=== PATIENT | female | born 2005 | race Caucasian/White ===

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

== ENCOUNTER 2024-06-14 11:05 | Outpatient (AMB) | payer OTHER, SELFPAY ==
--- NOTE | 2024-06-14 11:13 | A.OFFPC_ITS ---
Vital Signs 06/14/24 11:17 Height 5 ft 2 in Weight 148 lb 6 oz BMI 27.1 BP 118/70 Blood Pressure Location Lt brachial Position Sitting Respiration 13 Pulse 76 Pulse Source Pulse Oximeter Pulse Oximetry (%) 99 Oxygen Delivery Method Room Air Intake Visit Reasons: KENNEL WORKER-EST CARE Intake Note: new patient to establish care and needs refill on meds Clinical Office Technician Required: No Allergies No Known Allergies Allergy (Verified 06/14/24 11:38) Medication List - Last Reconciled 06/14/24 by NIKI Chang- sertraline 50 mg PO DAILY Tobacco use date assessed: 06/14/24 Dental Screening Dental Screen Date: 06/14/24 Did you have a dental visit in the last 12 months?: Yes Did you have a dental problem in the last 6 months where you did not have access to dental care?: No Was dental information given to patient?: Patient has dentist HPI HPI Comments History of Present Illness Details 18 y/o F with MAMTA, MDD, ADHD, Vit D def, deviated nasal septum Social: 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 MAMTA, is on sertraline 50mg, started this in February, no dose changes. Taking QD. Does not feel like its working. Academic and social anxiety. Was in counseling in the past. Does have access to counseling at school. Has never been on any other medications. Hard time focusing. Hard time sitting still. Wonders if she has ADHD. Has never discuss this with her emergency medical technician or her parents. Denies SI/HI, negative coping skills. Overall she reports daytime somnolence and fatigue. She has witnessed apnea and snoring. She has never had a sleep study but wonders if she does have sleep apnea. She reports regular menstrual cycles and no chance of . She is not on control Finally she does report that she has a known deviated nasal septum and when she has sinus congestion she has not even harder time breathing. She has never been seen by ENT Plan: Labs today to rule out causes that could be contributing or worsening her anxiety. If labs are normal we will start Wellbutrin XL 150 mg 1 tablet once per day in the morning and refill her sertraline at the current dose. Recommend that she follow up with her school to see about counseling. If she is not able to establish care there and he has a referral I have asked that she send me a message via the portal so that I can refer her to counseling. Denies hx of Sz. Scored + on ADHD self assessment, So I do think that this medication will help her attention and focus. Made aware that this may worsen her anxiety and she should let me know if this is the case. Start Flonase to help with her deviated septum. If needed in the future could refer to ENT but we will hold off at this time. Home sleep study ordered to evaluate for complaints above. I would like to see her back in the office in about 6 weeks. She reports that she has finals therefore I told her I would like to see her when it works for her schedule, sooner as needed. Labs show no cause, therefore refill sertraline sent along w/ new rx for wellbutrin Vit D3 1000 IU sent in as well. Pt made aware via portal at 1705. This note is constructed using voice recognition software. While every effort has been made to ensure accuracy in refueler, still errors may have been included Sometimes, these errors may affect the content or meaning of the given sentence . Total time spent caring for the patient today was 45 minutes. This includes time spent before the visit reviewing the chart, time spent during the visit, and time spent after the visit on documentation [facility] Medical History (Updated 06/14/24 @ 17:02 by Linda Dhaliwal [facility]) Anxiety Surgical History (Updated 06/14/24 @ 11:26 by Genoveva Goel MA) No pertinent past surgical history Family History (Updated 06/14/24 @ 11:27 by Genoveva Goel MA) Sister Substance abuse Father Asthma Mother Hypertension Maternal Grandfather Hypertension Social History (Updated 06/14/24 @ 11:22 by Genoveva Goel MA) Household Members: None Housing: Apartment Housing Other:: dorm room Are you a primary team primary care physician to a significant other at home: No Do you presently have visiting nurse or other home services: No Alcohol intake: never Patient Tobacco Use Status: Never used Tobacco e-Cigarette/Vaping Use: Never Used service: No Current occupational status: student Cognitive needs: Yes Hearing needs: No Vision needs: No Questionnaire PHQ-9 Over the last 2 weeks, how often have you been bothered by any of the following problems? 1. Little interest or pleasure in doing things: more than half the days 2. Feeling down, depressed, or hopeless: more than half the days 3. Trouble falling or staying asleep, or sleeping too much: several days 4. Feeling tired or having little energy: more than half the days 5. Poor appetite or overeating: several days 6. Feeling bad about yourself - or that you are a failure or have let yourself or your family down: several days 7. Trouble concentrating on things, such as reading the newspaper or watching television: several days 8. Moving or speaking so slowly that other people could have noticed. Or the opposite - being so fidgety or restless that you have been moving around a lot more than usual: not at all 9. Thoughts that you would be better off or of hurting yourself in some way: not at all Total score: 10 Depression Screening Interpretation: Positive Depression Screening Follow-up: Existing condition and Follow-up Visit Requested Depression Screening Done: Yes 01624 - PHQ-9 Billing: Yes Source: Developed by Drs. Silvano Oneal, Hilda Cardona, David Thrasher and colleagues, with an educational josh from [employer]. Thrive Questionnaire Date Thrive assessed: 06/14/24 I am a: Patient What is your living situation today?: I have a steady place to live Within the past 12 months, did the food you bought not last and you didn't have the money to get more?: Never true Within the past 12 months, did you worry whether your food would run out before you got money to buy more?: Never true Do you have trouble paying for medicines?: No Do you have trouble getting transportation to medical appointments?: No Do you have trouble paying your heating and electricity bill?: No Do you have trouble taking care of your child, family member or friend?: No Do you have trouble with day-to-day activities such as bathing, preparing meals, shopping, managing finances, etc.?: No Are you currently unemployed and looking for a job?: No Are you interested in more education?: No Please select the resources that you would like help with: None Currently or been in a relationship where the following occur: No concerns reported THRIVE Score: 0 AUDIT C Alcohol Use Questionnaire (AUDIT-C) 1. How often do you have a drink containing alcohol?: Never 3. How often do you have six or more drinks on one occasion?: Never Total Score: 0 Score Reviewed/Action Taken: Yes MAMTA-7 AMB Questionnaire MAMTA-7 Date MAMTA - 7 assessed: 06/14/24 Feeling nervous, anxious, or on edge: 3 = Nearly every day Not being able to stop or control worryin = Nearly every day Worrying too much about different things: 3 = Nearly every day Trouble relaxin = More than half the days Being so restless that it is hard to sit still: 2 = More than half the days Becoming easily annoyed or irritable: 2 = More than half the days Feeling afraid as if something awful might happen: 1 = Several days Total MAMTA-7 score (0-4 normal; 5-9 mild; 10-14 moderate; 15-21 severe): 16 Source: Developed by Drs. Silvano Oneal, Hilda Cardona, David Thrasher and colleagues, with an educational josh from [employer]. MAMTA-7 Assessment Billing MAMTA-7 Assessment Tool: MAMTA-7 Assessment 82877 Physical exam (Primary Care) Vital Signs: Last Vital Signs Pulse 76 06/14/24 11:17 Resp 13 06/14/24 11:17 BP 118/70 06/14/24 11:17 Pulse Ox 99 06/14/24 11:17 Oxygen Delivery Method Room Air 06/14/24 11:17 BMI result Body Mass Index 27.1 Tobacco/Smoking Status: Tobacco use Status Tobacco use date assessed 06/14/24 06/14/24 11:23 Patient Tobacco Use Status Never used Tobacco 06/14/24 11:23 e-Cigarette/Vaping Use Never Used 06/14/24 11:23 PHQ-9: PHQ-9 Score PHQ-9: Total score 10 06/14/24 12:23 Depression Screening Interpretation: Positive Depression Screening Follow-up: Existing condition and Follow-up Visit Requested Thrive Assessment: Date of Thrive Assessment Date Thrive assessed 06/14/24 06/14/24 11:15 Currently or been in a relationship where the following occur: No concerns reported Results Reviewed Results Reviewed: RUN: 06/14/24 1701 PAGE 1 [facility] [address] [place] [phone] Customer Retention Specialist: Steve Momin M.D. Specimen Inquiry Name: Flavia Cook I Age/Sex: 18/F : 2005 Unit#: [id number] Attend Dr: Linda Dhaliwal Re06/14/24 Status: REG REF Location: [facility] Disch: SPEC : [id number] LUZ: 06/14/24-1237 STATUS: COMP REQ : [id number] RECD: 06/14/24-[address] COMP: 06/14/24-1634 ENTERED: 06/14/24-[address]: ORDERED: CMP, Lipid Panel, Vitamin D 25-OH, TSH Rflx Test Result Flag Reference Sodium 138 135-145 mmol/L Potassium 3.9 3.3-5.1 mmol/L CL 108 96-108 mmol/L CO2 23 22-29 mmol/L Gap 11 L 12-20 BUN 16 9-16 mg/dL Creat 0.73 0.5-1.4 mg/dL EGFR > 60 NOTE: For -Emirati individuals, multiply the result by 1.210. Chronic Kidney Disease: Estimated GFR < 60 mL/min/1.73m2 Severe Kidney Disease: Estimated GFR < 15 mL/min/1.73m2 Glucose, Random 71 60-115 mg/dL CA 9.5 8.4-10.2 mg/dL Total Bili 0.5 0.0-1.0 mg/dL AST (GOT) 38 H 5-31 U/L ALT (GPT) 16 0-31 U/L Protein, Total 7.3 6.5-8.0 g/dL Alb 4.2 3.5-5.0 g/dL Triglyceride 120 <150 mg/dL Desirable Triglyceride: less than 90 mg/dL Borderline High Triglyceride: 90-129 mg/dL High Triglyceride: greater than 130 mg/dL Cholesterol 172 <200 mg/dL Desirable Cholesterol: less than 170 mg/dL Borderline High Cholesterol: 170-199 mg/dL High Cholesterol: greater than 200 mg/dL LDL Calculated 89 <100 mg/dL Desirable LDL: less than 110 mg/dL Borderline LDL: 110-129 mg/dL High LDL: greater than or equal to 130 mg/dL HDL 59 >40 mg/dL Desirable HDL: greater than 45 mg/dL Borderline HDL: 40-45 mg/dL Low HDL: less than 40 mg/dL Note: This HDL assay may give artificially low results in patients with liver disease. Alk Phos 51 39-117 U/L Vit D 25-OH Tot 26.8 L >30 ng/mL Health Based Reference Values* < 20 ng/mL Deficient 20-30 ng/mL Insufficient > 30 ng/mL Sufficient *Dale LORA. N Engl J Med. 2007;357:266-280 Care must be taken in interpreting Vitamin D results from different laboratories and methodologies. Published data demonstrated that results from patients undergoing hemodialysis may show a negative bias when tested with various automated 25-OH vitamin D assays when compared to LC-MS/MS. When testing samples from patients whose predominant form of Vitamin D is Vitamin D2, such as patients receiving Vitamin D2 supplementation, results that are subtherapeutic should be confirmed with another method such as LC-MS/MS. TSH 0.90 0.32-4.0 uIU/mL END OF REPORT Coding Level of Care Code New Pt Level 4 (65027) Complex EM visit Add On G2211 Diagnoses MAMTA (generalized anxiety disorder) F41.1 Mild episode of recurrent major depressive disorder F33.0 Major depression episode severity: mild ADHD (attention deficit hyperactivity disorder) evaluation Z13.39 Daytime somnolence R40.0 ADHD (attention deficit hyperactivity disorder), inattentive type F90.0 Deviated nasal septum J34.2 Vitamin D deficiency E55.9 Additional Codes MAMTA-7 Assessment Billing - MAMTA-7 Assessment Tool: MAMTA-7 Assessment 00198 ([id number]) Assessment & Plan Assessment & Plan (1) MAMTA (generalized anxiety disorder): Code(s): F41.1 - Generalized anxiety disorder Category: Medical Plan: . (2) MDD (major depressive disorder), recurrent episode: Code(s): F33.9 - Major depressive disorder, recurrent, unspecified Category: Medical Qualifiers: Major depression episode severity: mild Qualified Code(s): F33.0 - Major depressive disorder, recurrent, mild Plan: . (3) ADHD (attention deficit hyperactivity disorder) evaluation: Code(s): Z13.39 - Encounter for screening examination for other mental health and behavioral disorders Category: Medical Plan: . (4) Daytime somnolence: Code(s): R40.0 - Somnolence Category: Medical Plan: . (5) ADHD (attention deficit hyperactivity disorder), inattentive type: Code(s): F90.0 - Attention-deficit hyperactivity disorder, predominantly inattentive type Category: Medical Plan: . (6) Deviated nasal septum: Code(s): J34.2 - Deviated nasal septum Category: Medical Plan: . (7) Vitamin D deficiency: Code(s): E55.9 - Vitamin D deficiency, unspecified Category: Medical Plan: . Plan . Orders: Orders Complete Blood Count no Diff Today F41.1 - Generalized anxiety disorder Comprehensive Met. Panel Today F41.1 - Generalized anxiety disorder Hemoglobin A1c Today F41.1 - Generalized anxiety disorder Microalbumin, Random (w Creat) Today F41.1 - Generalized anxiety disorder Vitamin B12 and Folate Today F41.1 - Generalized anxiety disorder RT home sleep study Today J34.2 - Deviated nasal septum, R40.0 - Somnolence Lipid Panel Today F41.1 - Generalized anxiety disorder TSH reflex Free T4 Today F41.1 - Generalized anxiety disorder Vitamin D 25-OH Total Today F41.1 - Generalized anxiety disorder Medications: New sertraline 50 mg PO DAILY 90 tabs 0RF bupropion HCl XL (Wellbutrin XL) 150 mg PO QAM 90 tabs 0RF cholecalciferol (vitamin D3) 25 mcg PO DAILY 90 caps 2RF fluticasone propionate 50 mcg/actuation administer into each nostril 1 spray intranasal BID 16 grams 0RF Patient Instructions: Walk-In Care (Urgent Care): We Make it Easy Walk-in for urgent medical issues such as: ? Seasonal Allergies ? Insect Bites ? Cough ? Diarrhea ? Acute Asthma Attacks ? Back, Knee or Joint Pain ? Ear Infection ? Fever without a Rash ? Headaches ? Nausea ? Sylva Eye, Rash or Skin Irritation ? Sore Throat ? Sports Physicals ? Vomiting Most insurances are accepted. Patients do not need to be part of the [facility] to seek care at the walk-in clinic. Locations [address] [place] [address] ? [phone] [facility] Walk-In Care in [place] provides services to ages 18 and over. Open Friday-Friday: 8 a.m. to 5 p.m. and Friday: 9 a.m. to 3 p.m.* *Hours may vary due to staffing availability. To confirm Walk-In Care hours in [place], please call [phone]. [address] [place] [address] ? [phone] [facility] Walk-In Care in [place] provides services to ages 12 and over. Open Friday-Friday: 8 a.m. to 5 p.m. Hours may vary due to staffing availability. To confirm Walk-In Care hours in [place], please call [phone]. LABORATORY SERVICES: [facility] Lab ? Primary Location [address] [place] [address] Friday through Friday 6:00 AM ? 5:00 PM Friday 7:00 AM ? 11:00 AM* [phone] The [facility] Lab is centrally located near the front entrance of the [facility] for easy outpatient access. Convenient parking is provided for outpatients. *Hours may vary due to staffing availability. To confirm Laboratory hours for any location, please call [phone]. Offsite Location For your convenience, we offer offsite laboratory draw stations at the following locations: [address] [place] [address] ? [facility] [address], [address] Friday through Friday 7:30 AM ? 1:00 PM* [phone] *Hours may vary due to staffing availability. To confirm Laboratory hours for any location, please call [phone]. [place] ? [address] Friday through Friday 6:00 AM ? 3:30 PM* Friday 6:30 AM ? 3 PM* [phone] *Hours may vary due to staffing availability. To confirm Laboratory hours for any location, please call [phone]. [address] [facility] Friday through Friday 7:30 AM ? 4:00 PM* [phone] *Hours may vary due to staffing availability. To confirm Laboratory hours for any location, please call [phone]. [address] [facility] Friday through 9:00 AM ? 4:00 PM* *Hours may vary due to staffing availability. To confirm Laboratory hours for any location, please call [phone]. Appointments are not necessary. Walk-ins are welcome. Like all the departments throughout the [facility], our Lab undergoes frequent reviews to ensure the quality and accuracy of test results, and our staff takes special pride in its status as a nationally accredited facility. Patient Portal: ONE PATIENT. ONE RECORD. BETTER CARE. [facility] has a fully integrated, cutting- edge mobile electronic health information system that has revolutionized the way we care for our patients and manage our organization. This system improves communication and coordination enabling us to provide safe, higher-quality care, and an overall positive experience for staff and patients. Our first priority, as always, is to deliver the highest quality care possible. The system is running in the background supporting that priority. This portal is for all [facility] and [facility] services and practices. If you are experiencing any technical difficulties with enrolling or logging into the Patient Portal please complete the [facility] Patient Portal Technical Support Form. [facility] and [facility] now offers a new secure on-line interactive tool for patients to review their health information ? Patient Portal. This interactive web portal will enable patients and their families to take an active role in their care by providing easy, secure access to their health information via the internet. The Patient Portal provides patients with instant access to their health information, including laboratory results, medications, allergies, demographic information, visit history, and more. In addition to managing their own care, parents and health care proxies with authorized consent will appreciate the ability to access the records of those individuals for whom they provide care. Please note: if you wish to gain access (Proxy) to another patient?s portal, you will be required to come to the Medical Records Department in person at [facility]. Both the patient giving proxy access and the proxy will need to provide photo identification and complete the appropriate authorization. The Patient Portal also allows track their appointments online. The [facility] Patient Portal also saves patients time by allowing them to submit updates to their demographic and contact information prior to their visits. Portal email notifications will also alert patients to any new activity on their portal, such as test results and new appointments. In order to initially enroll in the [facility] Patient Portal, you will need to enter some required information including the following: ? your [facility] Medical Record number ? your personal home email address ? name ? date of Please note: In order to enroll in the [facility] Patient Portal, we need to have your email address on file in your electronic medical record. The email address needs to be specific for one person (yourself) in order for your Portal enrollment to be successful. You can update your email address in person with our Registration staff when you are registering for a hospital visit. Otherwise, you will need to come to the Health Information Management (Medical Records) Department at [facility]. We are open from Friday ? Friday from 7:30 a.m. ? 4:30 p.m. You will be required to present a photo id. Once you have successfully enrolled in the Patient Portal, you will receive a one-time user id and password for the Portal, sent to your email address. This will allow you to log into the Patient Portal within 99 hrs and reset your own logon id and password, and define personal security questions. Once your permanent login and password have been set, you can log into the [facility] Patient Portal at any time via the blue button above or from the Portal Logon button on any page of the [facility] website. [facility] and [facility] encourage all of our patients to enroll in Patient Portal as it presents a valuable opportunity for patients and their families to actively participate in their care and stay healthy Welcome to [facility]. We look forward to working with you.
[2024-06-14 11:17] VITALS: BP 118/70; PULSE 76; RESP 13; O2SAT 99; BMI 27.1
== END 2024-06-14 11:59 | disposition home or self-care (01) ==
LOC: HO.HMCFM 11:06
PROVIDERS: PCP Pediatrics; Visit Provider Nurse Practitioner Family
DX: R40.0 Somnolence (principal); F41.1 Generalized anxiety disorder; F33.0 Major depressive disorder, recurrent, mild; Z13.39 Encounter for screening examination for other mental health and behavioral disorders; F90.0 Attention-deficit hyperactivity disorder, predominantly inattentive type; J34.2 Deviated nasal septum; E55.9 Vitamin D deficiency, unspecified

== ENCOUNTER → 2024-06-14 11:05 | Outpatient (BNVA) | payer OTHER, SELFPAY | PROVIDERS: PCP Pediatrics; Visit Provider Nurse Practitioner Family | DX: F41.1 Generalized anxiety disorder (principal); F33.0 Major depressive disorder, recurrent, mild; R40.0 Somnolence; F90.0 Attention-deficit hyperactivity disorder, predominantly inattentive type; J34.2 Deviated nasal septum; E55.9 Vitamin D deficiency, unspecified | CPT/HCPCS: 96127; 99202 ==

== ENCOUNTER 2024-06-14 12:25 | Outpatient (REF) | payer OTHER, SELFPAY ==
[2024-06-14 14:52] LABS: Hematocrit 40.4 % (37.0-47.0); Hemoglobin 13.6 g/dl (12.0-16.0); Mean Corpuscular HGB Conc 33.7 g/dl (31.0-35.0); Mean Platelet Volume 11.8 fL (9.4-12.3); Platelet Count 223 X10*3/uL (160-400); Red Blood Count 4.54 X10*6/uL (4.20-5.50); Red Cell Distribution Width 12.1 % (11.0-16.0); White Blood Count 7.6 X10*3/uL (4.8-10.8)
[2024-06-14 15:05] LABS: Estimated Average Glucose 88 mg/dL; Hemoglobin A1C 99.8135 umol/L; Hemoglobin A1c % 4.7 % (<6.0); Total Hemoglobin (HGBA1C) 3567.1836 umol/L
[2024-06-14 15:44] LABS: Creatinine Urine 112.91 mg/dL; Microalbumin Urine < 5.0 mg/L
[2024-06-14 16:15] LABS: Alanine Aminotransferase 16 U/L (0-31); Albumin Level 4.2 g/dL (3.5-5.0); Anion Gap 11 (12-20); Aspartate Amino Transferase 38 U/L (5-31); Bilirubin Total 0.5 mg/dL (0.0-1.0); Blood Urea Nitrogen 16 mg/dL (9-16); Calcium 9.5 mg/dL (8.4-10.2); Carbon Dioxide 23 mmol/L (22-29); Chloride 108 mmol/L (96-108); Estimated Glomerular Filt Rate > 60; Glucose Random 71 mg/dL (60-115); Potassium 3.9 mmol/L (3.3-5.1); Sodium 138 mmol/L (135-145); Total Protein 7.3 g/dL (6.5-8.0); Triglycerides 120 mg/dL (<150)
[2024-06-14 16:16] LABS: Alkaline Phosphatase 51 U/L (39-117); Cholesterol 172 mg/dL (<200); HDL Cholesterol 59 mg/dL (>40); LDL Cholesterol Calculated 89 mg/dL (<100)
[2024-06-14 16:34] LABS: Vitamin D 25-OH Total 26.8 ng/mL (>30)
[2024-06-14 17:06] LABS: Folate 10.1 ng/mL (> or = 4.0); Vitamin B12 611 pg/mL (200-900)
== END 2024-06-14 12:26 | disposition home or self-care (01) ==
LOC: HO.WFDLDS 12:25
PROVIDERS: Visit Provider Nurse Practitioner Family
DX: F41.1 Generalized anxiety disorder (principal)
CPT/HCPCS: 36415; 80053; 80061; 82043; 82306; 82570; 82607; 82746; 83036; 84443; 85027

== ENCOUNTER 2024-08-13 08:38 | Outpatient (AMB) | payer OTHER, SELFPAY ==
--- NOTE | 2024-08-13 08:45 | MHC.PC.OV ---
Vital Signs 08/13/24 08:50 Height 5 ft 2 in Weight 145 lb 6 oz BMI 26.6 BP 124/76 Blood Pressure Location Rt brachial Position Sitting Respiration 13 Pulse 77 Pulse Source Pulse Oximeter Pulse Oximetry (%) 98 Oxygen Delivery Method Room Air Intake Visit Reasons: 6 week fu on MAMTA, labs 30 min Intake Note: Follow up on MAMTA and labs Title Insurance Sales Representative Required: No Allergies No Known Allergies Allergy (Verified 08/13/24 09:24) Medication List - Last Reconciled 08/13/24 by ABDIRAHMAN ChangP- bupropion HCl XL (Wellbutrin XL) 150 mg PO QAM cholecalciferol (vitamin D3) 25 mcg PO DAILY fluticasone propionate 50 mcg/actuation 1 spray intranasal BID sertraline 50 mg PO DAILY Tobacco use date assessed: 06/14/24 Dental Screening Dental Screen Date: 06/14/24 HPI HPI Comments History of Present Illness Details 19 y/o F with MAMTA, MDD, ADHD, Vit D def, deviated nasal septum, trichotillomania Social: In School for [employer], 2026 graduation date, [place] Surgery: None Health Maintenance Tdap Specialists: Counselor ENT Here today for routine fu after starting Wellbutrin to help w/ MAMTA and ADHD The patient reports no change in symptoms since starting bupropion, neither improvement in anxiety nor enhanced focus. She has previously been on sertraline for anxiety and trichotillomania but expressed interest in exploring additional treatment options, such as n-acetylcysteine for trichotillomania, after researching its potential benefits. The deviated nasal septum has been causing obstruction, leading to difficulty breathing through the left nostril and persistent snoring, which affects her sleep quality and causes disturbances for her roommate. A sleep study is scheduled to further examine the snoring issue. The patient has been using Flonase primarily in the mornings to relieve allergen-related symptoms, which has helped with nasal congestion. Previous vitamin D deficiency was identified, and the patient is currently addressing it with multivitamins that contain vitamin D. Social History - Family: Reports recent passing of grandfather and unable to attend the due to academic commitments. - Education: In college, discussed the need for educational accommodations due to focus issues and stress. Exam Awake alert NAD nasal deviation RRR LS CTAB Mood and affect appropriate Plan - Increase bupropion to 300 mg daily to potentially enhance symptom management for generalized anxiety disorder and ADHD. - Continue sertraline 50 mg daily for anxiety management. - Continue Flonase for allergic rhinitis management. - Patient to consider starting n-acetylcysteine for trichotillomania, following research into its benefits. - Referral to ENT for further evaluation and management of deviated nasal septum. - Conduct sleep study as scheduled on August 16 to assess snoring and breathing-related sleep disturbance. - Proceed with counseling referral for mental health support. - Provide letter of accommodation for academic adjustments related to focus and exam time. Patient was informed and verbally consented to the use of an ambient scribe for clinic note documentation during this visit. Discussion Notes During the consultation, I discussed with the patient the adjustment of her bupropion dosage to potentially improve her anxiety and focus. We considered adding n-acetylcysteine as a supplementary treatment for trichotillomania, emphasizing it does not interact with her current medications. I informed the patient about the ENT referral process and the potential wait time for an appointment due to limited availability in the area. I reiterated the plan for the upcoming sleep study to obtain further insights into her snoring issues. We revisited the importance of continuing vitamin supplementation and the use of Flonase in managing her symptoms. I emphasized the significance of mental health support and academic accommodations, particularly in light of her recent personal loss and stressors. I offered the option of a follow-up video visit to facilitate her schedule while ensuring ongoing monitoring of her treatment responses. Patient Instructions - Take bupropion 300 mg daily. - Continue sertraline 50 mg daily. - Continue using Flonase as needed for nasal congestion. - Consider starting n-acetylcysteine for trichotillomania after discussing with your family. - Keep the appointment for the sleep study on August 16. - Follow up with ENT when an appointment is confirmed. - Attend counseling sessions as arranged. - Inform the academic office about accommodation letters upon returning to school. - Book a follow-up visit in four weeks, either in-person or via video call as convenient. Total time spent caring for the patient today was 30 minutes. This includes time spent before the visit reviewing the chart, time spent during the visit, and time spent after the visit on documentation [facility] Medical History (Updated 08/13/24 @ 16:10 [facility] Anxiety Surgical History (Updated 06/14/24 @ 11:26 by Genoveva Goel MA) No pertinent past surgical history Family History (Updated 06/14/24 @ 11:27 by Genoveva Goel MA) Sister Substance abuse Father Asthma Mother Hypertension Maternal Grandfather Hypertension Social History (Updated 06/14/24 @ 11:22 by Genoveva Goel MA) Household Members: None Housing: Apartment Housing Other:: dorm room Are you a primary careers counsellor to a significant other at home: No Do you presently have visiting nurse or other home services: No 75 years or older and lives alone: No Alcohol intake: never Patient Tobacco Use Status: Never used Tobacco e-Cigarette/Vaping Use: Never Used service: No Current occupational status: student Cognitive needs: Yes Hearing needs: No Vision needs: No Questionnaire PHQ-9 Over the last 2 weeks, how often have you been bothered by any of the following problems? 1. Little interest or pleasure in doing things: several days 2. Feeling down, depressed, or hopeless: several days 3. Trouble falling or staying asleep, or sleeping too much: several days 4. Feeling tired or having little energy: nearly every day 5. Poor appetite or overeating: several days 6. Feeling bad about yourself - or that you are a failure or have let yourself or your family down: several days 7. Trouble concentrating on things, such as reading the newspaper or watching television: nearly every day 8. Moving or speaking so slowly that other people could have noticed. Or the opposite - being so fidgety or restless that you have been moving around a lot more than usual: several days 9. Thoughts that you would be better off or of hurting yourself in some way: several days Total score: 13 Depression Screening Interpretation: Positive Depression Screening Follow-up: Existing condition and In treatment Depression Screening Done: Yes 84056 - PHQ-9 Billing: Yes Source: Developed by Drs. Silvano Oneal, Hilda Cardona, David Thrasher and colleagues, with an educational josh from [employer]. Thrive Questionnaire Date Thrive assessed: 08/13/24 I am a: Patient What is your living situation today?: I have a steady place to live Within the past 12 months, did the food you bought not last and you didn't have the money to get more?: Never true Within the past 12 months, did you worry whether your food would run out before you got money to buy more?: Never true Do you have trouble paying for medicines?: No Do you have trouble getting transportation to medical appointments?: No Do you have trouble paying your heating and electricity bill?: No Do you have trouble taking care of your child, family member or friend?: No Do you have trouble with day-to-day activities such as bathing, preparing meals, shopping, managing finances, etc.?: No Are you currently unemployed and looking for a job?: No Are you interested in more education?: Yes Please select the resources that you would like help with: None Currently or been in a relationship where the following occur: No concerns reported THRIVE Score: 0 AUDIT C Alcohol Use Questionnaire (AUDIT-C) 1. How often do you have a drink containing alcohol?: Never 3. How often do you have six or more drinks on one occasion?: Never Total Score: 0 Score Reviewed/Action Taken: Yes MAMTA-7 AMB Questionnaire MAMTA-7 Date MAMTA - 7 assessed: 08/13/24 Feeling nervous, anxious, or on edge: 3 = Nearly every day Not being able to stop or control worryin = Nearly every day Worrying too much about different things: 3 = Nearly every day Trouble relaxin = More than half the days Being so restless that it is hard to sit still: 2 = More than half the days Becoming easily annoyed or irritable: 3 = Nearly every day Feeling afraid as if something awful might happen: 2 = More than half the days Total MAMTA-7 score (0-4 normal; 5-9 mild; 10-14 moderate; 15-21 severe): 18 Source: Developed by Drs. Silvano Oneal, Hilda Cardona, David Thrasher and colleagues, with an educational josh from [employer]. MAMTA-7 Assessment Billing MAMTA-7 Assessment Tool: MAMTA-7 Assessment 81201 Physical exam (Primary Care) Vital Signs: Last Vital Signs Pulse 77 08/13/24 08:50 Resp 13 08/13/24 08:50 BP 124/76 08/13/24 08:50 Pulse Ox 98 08/13/24 08:50 Oxygen Delivery Method Room Air 08/13/24 08:50 BMI result Body Mass Index 26.6 Tobacco/Smoking Status: Tobacco use Status Tobacco use date assessed 06/14/24 08/13/24 08:48 Patient Tobacco Use Status Never used Tobacco 08/13/24 08:48 e-Cigarette/Vaping Use Never Used 08/13/24 08:48 PHQ-9: PHQ-9 Score PHQ-9: Total score 13 08/13/24 09:24 Depression Screening Interpretation: Positive Depression Screening Follow-up: Existing condition and In treatment Thrive Assessment: Date of Thrive Assessment Date Thrive assessed 08/13/24 08/13/24 08:48 Currently or been in a relationship where the following occur: No concerns reported Coding Level of Care Code Est Pt Level 4 (19869) Complex EM visit Add On G2211 Diagnoses Mild episode of recurrent major depressive disorder F33.0 Major depression episode severity: mild MAMTA (generalized anxiety disorder) F41.1 Vitamin D deficiency E55.9 ADHD (attention deficit hyperactivity disorder), inattentive type F90.0 Deviated nasal septum J34.2 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 Additional Codes MAMTA-7 Assessment Billing - MAMTA-7 Assessment Tool: MAMTA-7 Assessment 75340 ([id number]) PHQ-9 - 12047 - PHQ-9 Billing: Yes ([id number]) Assessment & Plan Assessment & Plan (1) MDD (major depressive disorder), recurrent episode: Code(s): F33.9 - Major depressive disorder, recurrent, unspecified Category: Medical Qualifiers: Major depression episode severity: mild Qualified Code(s): F33.0 - Major depressive disorder, recurrent, mild (2) MAMTA (generalized anxiety disorder): Code(s): F41.1 - Generalized anxiety disorder Category: Medical (3) Vitamin D deficiency: Code(s): E55.9 - Vitamin D deficiency, unspecified Category: Medical (4) ADHD (attention deficit hyperactivity disorder), inattentive type: Code(s): F90.0 - Attention-deficit hyperactivity disorder, predominantly inattentive type Category: Medical (5) Deviated nasal septum: Comment: left Code(s): J34.2 - Deviated nasal septum Category: Medical (6) Trichotillomania: Code(s): F63.3 - Trichotillomania Category: Medical Plan . Orders: Referrals Nurse Navigator Referral F41.1 - Generalized anxiety disorder Ear/Nose/Throat Referral J34.2 - Deviated nasal septum
[2024-08-13 08:50] VITALS: BP 124/76; PULSE 77; RESP 13; O2SAT 98; BMI 26.6
== END 2024-08-13 09:42 | disposition home or self-care (01) ==
PROVIDERS: PCP Nurse Practitioner Family; Visit Provider Nurse Practitioner Family
DX: J34.2 Deviated nasal septum (principal); E55.9 Vitamin D deficiency, unspecified; F33.0 Major depressive disorder, recurrent, mild; F41.1 Generalized anxiety disorder; F90.0 Attention-deficit hyperactivity disorder, predominantly inattentive type; F63.3 Trichotillomania

== ENCOUNTER → 2024-08-13 08:38 | Outpatient (BNVA) | payer OTHER, SELFPAY | PROVIDERS: PCP Nurse Practitioner Family; Visit Provider Nurse Practitioner Family | DX: F33.0 Major depressive disorder, recurrent, mild (principal); F41.1 Generalized anxiety disorder; E55.9 Vitamin D deficiency, unspecified; F90.0 Attention-deficit hyperactivity disorder, predominantly inattentive type; J34.2 Deviated nasal septum; F63.3 Trichotillomania | CPT/HCPCS: 96127; 99212 ==

== ENCOUNTER → 2024-08-16 15:41 | Outpatient (REF) | payer OTHER, SELFPAY | LOC: HO.SL 15:41 | PROVIDERS: PCP Nurse Practitioner Family; Visit Provider Nurse Practitioner Family | DX: R40.0 Somnolence (principal); J34.2 Deviated nasal septum | CPT/HCPCS: 95806 ==

== ENCOUNTER → 2024-08-16 15:56 | Outpatient (BNV) | payer OTHER, SELFPAY | PROVIDERS: PCP Nurse Practitioner Family; Visit Provider Internal Medicine | DX: R06.83 Snoring (principal) | CPT/HCPCS: 95806 ==

== ENCOUNTER 2024-09-10 12:14 | Outpatient (AMB) | payer OTHER, SELFPAY ==
--- NOTE | 2024-09-10 13:00 | MHC.PC.OV ---
Intake Visit Reasons: 4 weeks fu wellbutrin ^ in person or tele Allergies No Known Allergies Allergy (Verified 09/10/24 13:00) Medication List - Last Reconciled 09/10/24 by NIKI Chang- bupropion HCl XL (Wellbutrin XL) 300 mg PO QAM cholecalciferol (vitamin D3) 25 mcg PO DAILY fluticasone propionate 50 mcg/actuation 1 spray intranasal BID sertraline 50 mg PO DAILY Tobacco use date assessed: 09/10/24 Dental Screening Dental Screen Date: 09/10/24 Did you have a dental visit in the last 12 months?: Yes Did you have a dental problem in the last 6 months where you did not have access to dental care?: No Was dental information given to patient?: Patient has dentist HPI HPI Comments History of Present Illness Details 19 y/o F with MAMTA, MDD, ADHD, Vit D def, deviated nasal septum, trichotillomania Social: In School for [employer], 2026 graduation date, [place] Surgery: None Specialists: Counselor declined @ this time. ENT Telehealth appt today: MDD, MAMTA, ADHD f/u She has been prescribed Bupropion 300 mg for Major Depressive Disorder, MAMTA and ADHD but reports no significant change in symptoms after consistent use. Her current regimen includes Sertraline. Referred to counseling but does not think she needs this right now Additionally, she started N-acetylcysteine 600 mg for trichotillomania, noting some improvement in symptoms, particularly a reduction in the urge to pull hair. A sleep study performed on August 16 showed 17% snoring, likely related to her known deviated septum, but no apneic episodes or dangerous oxygen desaturation were noted. She has been advised to consult with an ENT specialist regarding her nasal issues and the associated snoring. Her current regimen includes Sertraline Social History - Currently attending college and resides in a dormitory setting. - Has reported recent improvement in stress-related conflict at school. - Performing well academically despite some ongoing stress. Results - Tests: - Sleep Study dated August 16: 17% snoring with no apneic events and minimal non-dangerous oxygen desaturation. Discussion Notes I reviewed the patient's current medication regimen and the results of her recent sleep study. We discussed increase of Bupropion from 300 mg to 450 mg. We agreed to maintain the current Sertraline dosage. The sleep study results indicated snoring likely related to the deviated nasal septum, warranting an ENT consultation. The patient has initiated N-acetylcysteine with positive results for trichotillomania, and she was encouraged to continue this medication. Counseling was discussed, but the patient currently declines as she feels stable. Needs more info on letter of accomodation for school - she will provide this to me via the portal. We planned a follow-up in approximately six to eight weeks to reassess the management plan. 10/04/24 at 3:45pm telehealth Plan - Increase Bupropion to a total of 450 mg daily by combining 300 mg and 150 mg tablets due to insufficient symptom control at 300 mg. - Maintain current Sertraline dosing as patient reports adequate supply and stability in symptoms. - ENT evaluation of deviated nasal septum to address snoring and potential impact on sleep quality. Info provided via portal - Continue N-acetylcysteine for management of trichotillomania, as the patient has reported improvement in symptoms. - Provide letter of accommodation for academic adjustments related to focus and exam time. - Schedule follow-up in six to eight weeks to evaluate efficacy of increased Bupropion dosage and reassess mood and anxiety scores. Consider further counseling if necessary. Patient was informed and verbally consented to the use of an ambient scribe for clinic note documentation during this visit. Total time spent caring for the patient today was 22 minutes. This includes time spent before the visit reviewing the chart, time spent during the visit, and time spent after the visit on documentation, reviewing laboratory results, diagnostic imaging, medications, performing a medically necessary evaluation, counseling on diagnoses, care coordination, ordering appropriate tests, ordering appropriate medications, review of tests performed by other providers, reporting test results with the patient, communication with other healthcare providers. [facility] Medical History (Updated 09/10/24 @ 13:24 [facility] Anxiety Surgical History (Updated 06/14/24 @ 11:26 by Genoveva Goel MA) No pertinent past surgical history Family History (Updated 06/14/24 @ 11:27 by Genoveva Goel MA) Sister Substance abuse Father Asthma Mother Hypertension Maternal Grandfather Hypertension Social History (Updated 06/14/24 @ 11:22 by Genoveva Goel MA) Household Members: None Housing: Apartment Housing Other:: dorm room Are you a primary urgent care nurse practitioner to a significant other at home: No Do you presently have visiting nurse or other home services: No 75 years or older and lives alone: No Alcohol intake: never Patient Tobacco Use Status: Never used Tobacco e-Cigarette/Vaping Use: Never Used service: No Current occupational status: student Cognitive needs: Yes Hearing needs: No Vision needs: No Questionnaire PHQ-9 Over the last 2 weeks, how often have you been bothered by any of the following problems? 1. Little interest or pleasure in doing things: several days 2. Feeling down, depressed, or hopeless: several days 3. Trouble falling or staying asleep, or sleeping too much: more than half the days 4. Feeling tired or having little energy: nearly every day 5. Poor appetite or overeating: not at all 6. Feeling bad about yourself - or that you are a failure or have let yourself or your family down: several days 7. Trouble concentrating on things, such as reading the newspaper or watching television: nearly every day 8. Moving or speaking so slowly that other people could have noticed. Or the opposite - being so fidgety or restless that you have been moving around a lot more than usual: not at all 9. Thoughts that you would be better off or of hurting yourself in some way: not at all Total score: 11 Depression Screening Interpretation: Positive Depression Screening Follow-up: Existing condition and In treatment Depression Screening Done: Yes 29100 - PHQ-9 Billing: Yes Source: Developed by Drs. Silvano Oneal, Hilda Cardona, David Thrasher and colleagues, with an educational josh from [employer]. Thrive Questionnaire Date Thrive assessed: 08/13/24 MAMTA-7 AMB Questionnaire MAMTA-7 Date MAMTA - 7 assessed: 09/10/24 Feeling nervous, anxious, or on edge: 3 = Nearly every day Not being able to stop or control worryin = More than half the days Worrying too much about different things: 1 = Several days Trouble relaxin = Several days Being so restless that it is hard to sit still: 1 = Several days Becoming easily annoyed or irritable: 3 = Nearly every day Feeling afraid as if something awful might happen: 0 = Not at all Total MAMTA-7 score (0-4 normal; 5-9 mild; 10-14 moderate; 15-21 severe): 11 Source: Developed by Drs. Silvano Oneal, Hilda Cardona, David Thrasher and colleagues, with an educational josh from [employer]. MAMTA-7 Assessment Billing MAMTA-7 Assessment Tool: MAMTA-7 Assessment 81925 Physical exam (Primary Care) Tobacco/Smoking Status: Tobacco use Status Tobacco use date assessed 06/14/24 08/13/24 08:48 Patient Tobacco Use Status Never used Tobacco 08/13/24 08:48 e-Cigarette/Vaping Use Never Used 08/13/24 08:48 Depression Screening Interpretation: Positive Depression Screening Follow-up: Existing condition and In treatment Thrive Assessment: Date of Thrive Assessment Date Thrive assessed 08/13/24 08/13/24 08:48 Telehealth Telehealth Telehealth Platform: [facility] Location of provider rendering services: practice address Location of patient: address on file Patient Identification confirmed using: Name, : Yes Telehealth method: voice only Patient verbally consented to treatment: Yes Patient verbally consented to billing insurance company: Yes Patient informed of any privacy concerns related to visit: Yes Minutes spent on Phone/Video with Pt.: 15 Coding Level of Care Code Tele Est Pt Level 3 (49773) Complex EM visit Add On G2211 Diagnoses ADHD (attention deficit hyperactivity disorder), inattentive type F90.0 Daytime somnolence R40.0 MAMTA (generalized anxiety disorder) F41.1 Mild episode of recurrent major depressive disorder F33.0 Major depression episode severity: mild 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 Deviated nasal septum J34.2 Additional Codes PHQ-9 - 86980 - PHQ-9 Billing: Yes ([id number]) MAMTA-7 Assessment Billing - MAMTA-7 Assessment Tool: MAMTA-7 Assessment 27412 ([id number]) Assessment & Plan Assessment & Plan (1) ADHD (attention deficit hyperactivity disorder), inattentive type: Code(s): F90.0 - Attention-deficit hyperactivity disorder, predominantly inattentive type Category: Medical (2) Daytime somnolence: Code(s): R40.0 - Somnolence Category: Medical (3) MAMTA (generalized anxiety disorder): Code(s): F41.1 - Generalized anxiety disorder Category: Medical (4) MDD (major depressive disorder), recurrent episode: Code(s): F33.9 - Major depressive disorder, recurrent, unspecified Category: Medical Qualifiers: Major depression episode severity: mild Qualified Code(s): F33.0 - Major depressive disorder, recurrent, mild (5) Trichotillomania: Code(s): F63.3 - Trichotillomania Category: Medical (6) Deviated nasal septum: Comment: left Code(s): J34.2 - Deviated nasal septum Category: Medical Plan . Medications: New bupropion HCl XL (Wellbutrin XL) total dose 450mg QD 150 mg PO QAM 90 tabs 1RF Refilled bupropion HCl XL (Wellbutrin XL) 300 mg PO QAM 90 tabs 1RF
== END 2024-09-10 17:05 | disposition home or self-care (01) ==
LOC: HO.HMCFM 12:14
PROVIDERS: PCP Nurse Practitioner Family; Visit Provider Nurse Practitioner Family
DX: F90.0 Attention-deficit hyperactivity disorder, predominantly inattentive type (principal); R40.0 Somnolence; F41.1 Generalized anxiety disorder; F33.0 Major depressive disorder, recurrent, mild; F63.3 Trichotillomania; J34.2 Deviated nasal septum

== ENCOUNTER → 2024-09-10 12:14 | Outpatient (BNVA) | payer OTHER, SELFPAY | PROVIDERS: PCP Nurse Practitioner Family; Visit Provider Nurse Practitioner Family | DX: F90.0 Attention-deficit hyperactivity disorder, predominantly inattentive type (principal); R40.0 Somnolence; F41.1 Generalized anxiety disorder; F33.0 Major depressive disorder, recurrent, mild; F63.3 Trichotillomania; J34.2 Deviated nasal septum | CPT/HCPCS: 96127 ==

== ENCOUNTER 2024-10-11 14:16 | Outpatient (AMB) | payer OTHER, SELFPAY ==
--- NOTE | 2024-10-11 16:01 | A.OFFPC_ITS ---
Intake Visit Reasons: fu wellbutrin increase Intake Note: telehalth follow up on med review Eeler Required: No Allergies No Known Allergies Allergy (Verified 10/11/24 16:57) Medication List - Last Reconciled 10/11/24 by NIKI Chang- bupropion HCl XL (Wellbutrin XL) 150 mg PO QAM bupropion HCl XL (Wellbutrin XL) 300 mg PO QAM cholecalciferol (vitamin D3) 25 mcg PO DAILY fluticasone propionate 50 mcg/actuation 1 spray intranasal BID sertraline 50 mg PO DAILY Tobacco use date assessed: 10/11/24 Dental Screening Dental Screen Date: 10/11/24 Did you have a dental visit in the last 12 months?: Yes Did you have a dental problem in the last 6 months where you did not have access to dental care?: No Was dental information given to patient?: Patient has dentist HPI HPI Comments History of Present Illness Details 19 y/o F with MAMTA, MDD, ADHD, Vit D def, deviated nasal septum, trichotillomania Social: In School for [employer], 2026 graduation date, [place] Surgery: None Specialists: Counselor declined @ this time. ENT History of Present Illness The patient is a 19-year-old female with challenges in managing her ADHD, alongside comorbid anxiety and depression. Her ADHD symptoms, particularly poor attention and focus, have significantly interfered with her academic performance, exacerbating her anxiety and depressive symptoms. Despite an increase in bupropion dosage, she has not experienced significant relief. She continues on sertraline & NAC with some control over trichotillomania, though adherence is inconsistent with NAC. Denies SI/HI. Does not think counseling is needed. The patient has yet to pursue ENT evaluation for her deviated nasal septum. he benefits from academic accommodations, which aid in managing her school- related stress. Assessment and Plan 1. Attention-Deficit/Hyperactivity Disor claude (ADHD): Initiate atomoxetine (Strattera) for managing ADHD symptoms, starting at 10 mg daily with a gradual increase to assess efficacy and tolerance. Optimization of ADHD treatment is expected to contribute to an overall improvement in mental health symptoms. Send me a message q2 weeks and provide me with sx rating scale 1 being poor attention and 10 being great attention. We will increase dose in 2 week intervals w a phone visit in 6 weeks, sooner PRN. 2. Anxiety and Depression: Continue bupr opion and sertraline with a focus on fut ure tapering considerations as control of ADHD symptoms improves. The patient is open to trialing additional therapy to alleviate residual anxiety and depression. 3. Hair-Pulling Disorder (Trichotilloman ia): Although improved with NAC - cont. 4. Deviated Nasal Septum: Advise followi ng through with an ENT consultation when feasible to address the deviated nasal septum, potentially improving related symptoms. Telehealth Attestation This telehealth encounter was conducted via phone. Documentation accuracy and patient information were verified during the visit. The patient has been explained that this is an interactive (audio/video) telehealth encounter and what that consists of. The patient understands and wishes to proceed. [employer] platform was used. Total time spent caring for the patient today was 18 minutes. This includes time spent before the visit reviewing the chart, time spent during the visit, and time spent after the visit on documentation, reviewing laboratory results, diagnostic imaging, medications, performing a medically necessary evaluation, counseling on diagnoses, care coordination, ordering appropriate tests, ordering appropriate medications, review of tests performed by other providers, reporting test results with the patient, communication with other healthcare providers. [facility] Medical History (Updated 09/10/24 @ 13:24 by Linda Dhaliwal [facility]) Anxiety Surgical History (Updated 06/14/24 @ 11:26 by Genoveva Goel MA) No pertinent past surgical history Family History (Updated 06/14/24 @ 11:27 by Genoveva Goel MA) Sister Substance abuse Father Asthma Mother Hypertension Maternal Grandfather Hypertension Social History (Updated 06/14/24 @ 11:22 by Genoveva Goel MA) Household Members: None Housing: Apartment Housing Other:: dorm room Are you a primary care transition mgr to a significant other at home: No Do you presently have visiting nurse or other home services: No 75 years or older and lives alone: No Alcohol intake: never Patient Tobacco Use Status: Never used Tobacco e-Cigarette/Vaping Use: Never Used service: No Current occupational status: student Cognitive needs: Yes Hearing needs: No Vision needs: No Questionnaire PHQ-9 Over the last 2 weeks, how often have you been bothered by any of the following problems? 74732 - PHQ-9 Billing: Patient declined-do not bill Source: Developed by Drs. Silvano Oneal, Hilda Cardona, David Thrasher and colleagues, with an educational josh from [employer]. Thrive Questionnaire Date Thrive assessed: 10/11/24 I am a: Patient What is your living situation today?: I have a steady place to live Within the past 12 months, did the food you bought not last and you didn't have the money to get more?: Never true Within the past 12 months, did you worry whether your food would run out before you got money to buy more?: Never true Do you have trouble paying for medicines?: No Do you have trouble getting transportation to medical appointments?: No Do you have trouble paying your heating and electricity bill?: No Do you have trouble taking care of your child, family member or friend?: No Do you have trouble with day-to-day activities such as bathing, preparing meals, shopping, managing finances, etc.?: No Are you currently unemployed and looking for a job?: No Are you interested in more education?: No THRIVE Score: 0 MAMTA-7 AMB Questionnaire MAMTA-7 Date MAMTA - 7 assessed: 09/10/24 Source: Developed by Drs. Silvano Oneal, Hilda Cardona, David Thrasher and colleagues, with an educational josh from [employer]. Physical exam (Primary Care) Tobacco/Smoking Status: Tobacco use Status Tobacco use date assessed 10/11/24 10/11/24 16:03 Patient Tobacco Use Status Never used Tobacco 10/11/24 16:03 e-Cigarette/Vaping Use Never Used 10/11/24 16:03 Thrive Assessment: Date of Thrive Assessment Date Thrive assessed 10/11/24 10/11/24 16:03 Telehealth Telehealth Telehealth Platform: [facility] Location of provider rendering services: practice address Location of patient: address on file Patient Identification confirmed using: Name, : Yes Telehealth method: voice only Patient verbally consented to treatment: Yes Patient verbally consented to billing insurance company: Yes Patient informed of any privacy concerns related to visit: Yes Minutes spent on Phone/Video with Pt.: 12 Coding Level of Care Code Tele Est Pt Level 3 (92686) Complex EM visit Add On G2211 Diagnoses ADHD (attention deficit hyperactivity disorder), inattentive type F90.0 Deviated nasal septum J34.2 MAMTA (generalized anxiety disorder) F41.1 Mild episode of recurrent major depressive disorder F33.0 Major depression episode severity: mild 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 Assessment & Plan Assessment & Plan (1) ADHD (attention deficit hyperactivity disorder), inattentive type: Code(s): F90.0 - Attention-deficit hyperactivity disorder, predominantly inattentive type Category: Medical (2) Deviated nasal septum: Comment: left Code(s): J34.2 - Deviated nasal septum Category: Medical (3) MAMTA (generalized anxiety disorder): Code(s): F41.1 - Generalized anxiety disorder Category: Medical (4) MDD (major depressive disorder), recurrent episode: Code(s): F33.9 - Major depressive disorder, recurrent, unspecified Category: Medical Qualifiers: Major depression episode severity: mild Qualified Code(s): F33.0 - Major depressive disorder, recurrent, mild (5) Trichotillomania: Code(s): F63.3 - Trichotillomania Category: Medical Plan . Medications: New atomoxetine (Strattera) 10 mg PO DAILY 90 caps 0RF Refilled sertraline 50 mg PO DAILY 90 tabs 0RF
== END 2024-10-11 17:05 | disposition home or self-care (01) ==
LOC: HO.HMCFM 14:16
PROVIDERS: PCP Nurse Practitioner Family; Visit Provider Nurse Practitioner Family
DX: J34.2 Deviated nasal septum (principal); F90.0 Attention-deficit hyperactivity disorder, predominantly inattentive type; F33.0 Major depressive disorder, recurrent, mild; F41.1 Generalized anxiety disorder; F63.3 Trichotillomania

== ENCOUNTER 2024-11-26 10:23 | Outpatient (AMB) | payer OTHER, SELFPAY ==
--- NOTE | 2024-11-26 07:45 | A.OFFPC_ITS ---
Intake Visit Reasons: Follow Up Med. [phone] Intake Note: telehealth follow up Warehouse Team Leader Required: No Allergies No Known Allergies Allergy (Verified 11/26/24 15:52) Medication List - Last Reconciled 11/26/24 by NIKI Chang- atomoxetine (Strattera) 10 mg PO DAILY bupropion HCl XL (Wellbutrin XL) 150 mg PO QAM bupropion HCl XL (Wellbutrin XL) 300 mg PO QAM cholecalciferol (vitamin D3) 25 mcg PO DAILY fluticasone propionate 50 mcg/actuation 1 spray intranasal BID sertraline 50 mg PO DAILY Tobacco use date assessed: 11/26/24 Dental Screening Dental Screen Date: 10/11/24 HPI HPI Comments History of Present Illness Details 19 y/o F with MAMTA, MDD, ADHD, Vit D def, deviated nasal septum, trichotillomania Social: In School for [employer], 2026 graduation date, [place] Surgery: None Specialists: Counselor declined @ this time. ENT History of Present Illness - The patient is a 19-year-old female pr esenting with concerns regarding her current medication regimen for Attention-Deficit/Hyperactivity Disorder (ADHD). - She reported taking Strattera 10 mg da ashtyn as prescribed but noted only limited improvement in her ability to focus beyond the initial week and a half. - The patient reported no adverse effect s from the medication. - Approximately 60 to 50 capsules of her current prescription remain from the initial 90-day supply, indicating occasional missed doses. Assessment and Plan 1. Attention-Deficit/Hyperactivity Disor claude (ADHD) The patient is presently on Strattera 10 mg daily with limited improvement beyond the initial week. An increased dose to 20 mg daily has been implemented to enhance symptom management, utilizing her existing supply. A new 25 mg prescription will be sent, intended to be started post-current supply. Monitoring and follow-up will assess the response to the adjusted dosage. 2. Generalized Anxiety Disorder The patient will continue her current regimen of bupropion and sertraline, as symptoms are stable. The importance of medication adherence and symptom monitoring is reinforced. The treatment plan will be reassessed during follow- up. RTO 6 WEEKS IN PERSON FOR FU ON THE ABOVE, MESSAGE SENT TO FRONT OFFICE STAFF TO ARRANGE Telehealth Attestation This visit was conducted via a secure telehealth platform and documentation is accurate and complete based on the encounter. The patient has been explained that this is an interactive (audio/video) telehealth encounter and what that consists of. The patient understands and wishes to proceed. [employer] platform was used. Total time spent caring for the patient today was 15 minutes. This includes time spent before the visit reviewing the chart, time spent during the visit, and time spent after the visit on documentation, reviewing laboratory results, diagnostic imaging, medications, performing a medically necessary evaluation, counseling on diagnoses, care coordination, ordering appropriate tests, ordering appropriate medications, review of tests performed by other providers, reporting test results with the patient, communication with other healthcare providers. [facility] Medical History (Updated 09/10/24 @ 13:24 by [facility]) Anxiety Surgical History (Updated 06/14/24 @ 11:26 by Genoveva Goel MA) No pertinent past surgical history Family History (Updated 06/14/24 @ 11:27 by Genoveva Goel MA) Sister Substance abuse Father Asthma Mother Hypertension Maternal Grandfather Hypertension Social History (Updated 06/14/24 @ 11:22 by Genoveva Goel MA) Household Members: None Housing: Apartment Housing Other:: dorm room Are you a primary resident care manager rn to a significant other at home: No Do you presently have visiting nurse or other home services: No 75 years or older and lives alone: No Alcohol intake: never Patient Tobacco Use Status: Never used Tobacco e-Cigarette/Vaping Use: Never Used service: No Current occupational status: student Cognitive needs: Yes Hearing needs: No Vision needs: No Questionnaire Thrive Questionnaire Date Thrive assessed: 08/13/24 I am a: Patient What is your living situation today?: I have a steady place to live Within the past 12 months, did the food you bought not last and you didn't have the money to get more?: Never true Within the past 12 months, did you worry whether your food would run out before you got money to buy more?: Never true Do you have trouble paying for medicines?: No Do you have trouble getting transportation to medical appointments?: No Do you have trouble paying your heating and electricity bill?: No Do you have trouble taking care of your child, family member or friend?: No Do you have trouble with day-to-day activities such as bathing, preparing meals, shopping, managing finances, etc.?: No Are you currently unemployed and looking for a job?: No Are you interested in more education?: Yes Please select the resources that you would like help with: None Currently or been in a relationship where the following occur: No concerns reported THRIVE Score: 0 AUDIT C Alcohol Use Questionnaire (AUDIT-C) 3. How often do you have six or more drinks on one occasion?: Never Total Score: 0 MAMTA-7 AMB Questionnaire MAMTA-7 Date MAMTA - 7 assessed: 09/10/24 Source: Developed by Drs. Silvano Oneal, Hilda Cardona, David Thrasher and colleagues, with an educational josh from [employer]. Physical exam (Primary Care) Tobacco/Smoking Status: Tobacco use Status Tobacco use date assessed 11/26/24 11/26/24 10:20 Patient Tobacco Use Status Never used Tobacco 11/26/24 07:45 e-Cigarette/Vaping Use Never Used 11/26/24 07:45 Thrive Assessment: Date of Thrive Assessment Date Thrive assessed 08/13/24 11/26/24 07:45 Currently or been in a relationship where the following occur: No concerns reported Telehealth Telehealth Telehealth Platform: [facility] Location of provider rendering services: practice address Location of patient: address on file Patient Identification confirmed using: Name, : Yes Telehealth method: voice only Patient verbally consented to treatment: Yes Patient verbally consented to billing insurance company: Yes Patient informed of any privacy concerns related to visit: Yes Minutes spent on Phone/Video with Pt.: 10 Coding Level of Care Code Tele Est Pt Level 2 (02028) Complex EM visit Add On G2211 Diagnoses ADHD (attention deficit hyperactivity disorder), inattentive type F90.0 MAMTA (generalized anxiety disorder) F41.1 Mild episode of recurrent major depressive disorder F33.0 Major depression episode severity: mild 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 Assessment & Plan Assessment & Plan (1) ADHD (attention deficit hyperactivity disorder), inattentive type: Code(s): F90.0 - Attention-deficit hyperactivity disorder, predominantly inattentive type Category: Medical (2) MAMTA (generalized anxiety disorder): Code(s): F41.1 - Generalized anxiety disorder Category: Medical (3) MDD (major depressive disorder), recurrent episode: Code(s): F33.9 - Major depressive disorder, recurrent, unspecified Category: Medical Qualifiers: Major depression episode severity: mild Qualified Code(s): F33.0 - Major depressive disorder, recurrent, mild (4) Trichotillomania: Code(s): F63.3 - Trichotillomania Category: Medical Plan . Medications: New atomoxetine 25 mg PO DAILY 30 caps 0RF Changed From atomoxetine (Strattera) 10 mg PO DAILY 90 caps 0RF To atomoxetine (Strattera) 20 mg (2 x 10 mg) PO DAILY 90 caps 0RF
== END 2024-11-26 15:56 | disposition home or self-care (01) ==
LOC: HO.HMCFM 10:23
PROVIDERS: PCP Nurse Practitioner Family; Visit Provider Nurse Practitioner Family
DX: F90.0 Attention-deficit hyperactivity disorder, predominantly inattentive type (principal); F41.1 Generalized anxiety disorder; F33.0 Major depressive disorder, recurrent, mild; F63.3 Trichotillomania

== ENCOUNTER → 2024-11-26 10:23 | Outpatient (BNVA) | payer OTHER, SELFPAY | PROVIDERS: PCP Nurse Practitioner Family; Visit Provider Nurse Practitioner Family ==

== ENCOUNTER 2024-12-31 12:03 | Outpatient (AMB) | payer OTHER, SELFPAY ==
--- NOTE | 2024-12-31 12:01 | MHC.PC.OV ---
Intake Visit Reasons: Meds concern Intake Note: Telehealth medication concerns Fueler Required: No Allergies No Known Allergies Allergy (Verified 12/31/24 15:08) Medication List - Last Reconciled 12/31/24 by MERVAT Chang atomoxetine 25 mg PO DAILY atomoxetine (Strattera) 20 mg (2 x 10 mg) PO DAILY bupropion HCl XL (Wellbutrin XL) 150 mg PO QAM bupropion HCl XL (Wellbutrin XL) 300 mg PO QAM cholecalciferol (vitamin D3) 25 mcg PO DAILY fluticasone propionate 50 mcg/actuation 1 spray intranasal BID sertraline 50 mg PO DAILY Tobacco use date assessed: 12/31/24 Dental Screening Dental Screen Date: 12/31/24 Did you have a dental visit in the last 12 months?: Yes Did you have a dental problem in the last 6 months where you did not have access to dental care?: No Was dental information given to patient?: Patient has dentist HPI HPI Comments History of Present Illness Details 19 y/o F with MAMTA, MDD, ADHD, Vit D def, deviated nasal septum, trichotillomania Social: In School for [employer], 2026 graduation date, [place] Surgery: None Specialists: Counselor declined @ this time. ENT History of Present Illness - The patient is a 19-year-old female presenting with medication efficacy and cognitive concerns. - She reports ADHD medication loss of efficacy after initial improvement, returning to baseline focus difficulty. - Struggles include short attention span and challenges in handling academic and conversational tasks. - Experiences word retrieval difficulty, potentially due to Bupropion, prompting consideration for medication adjustment. - Medication includes Strattera, 20 mg to 25 mg; Bupropion 450mg Assessment and Plan 1. Attention-Deficit/Hyperactivity Disorder (ADHD) - Increase Strattera to 25 mg twice daily. - Monitor therapeutic response and side effects. 2. Cognitive Impairment secondary to ADHD medication - Reduce Bupropion from 450 to 300 mg x 2 weeks, then to 150 mg in two weeks. - Evaluate cognitive improvements during follow-up. 3. Speech Difficulty possibly related to Bupropion - Adjust Bupropion dosage considering potential cognitive side effects. - Observe for improvement in speech difficulty. Telehealth fu in 4 weeks, sooner PRN Telehealth Attestation The visit was conducted via a telephone encounter, and the documentation accurately reflects the discussion and management plan agreed upon during this session. The patient has been explained that this is an interactive (audio/video) telehealth encounter and what that consists of. The patient understands and wishes to proceed. [employer] platform was used. Total time spent caring for the patient today was 15 minutes. This includes time spent before the visit reviewing the chart, time spent during the visit, and time spent after the visit on documentation, reviewing laboratory results, diagnostic imaging, medications, performing a medically necessary evaluation, counseling on diagnoses, care coordination, ordering appropriate tests, ordering appropriate medications, review of tests performed by other providers, reporting test results with the patient, communication with other healthcare providers. [facility] Medical History (Updated 09/10/24 @ 13:24 [facility] Anxiety Surgical History (Updated 06/14/24 @ 11:26 by Genoveva Goel MA) No pertinent past surgical history Family History (Updated 06/14/24 @ 11:27 by Genoveva Goel MA) Sister Substance abuse Father Asthma Mother Hypertension Maternal Grandfather Hypertension Social History (Updated 06/14/24 @ 11:22 by Genoveva Goel MA) Household Members: None Housing: Apartment Housing Other:: dorm room Are you a primary acute care occupational therapist to a significant other at home: No Do you presently have visiting nurse or other home services: No 75 years or older and lives alone: No Alcohol intake: never Patient Tobacco Use Status: Never used Tobacco e-Cigarette/Vaping Use: Never Used service: No Current occupational status: student Cognitive needs: Yes Hearing needs: No Vision needs: No Questionnaire Thrive Questionnaire Date Thrive assessed: 08/13/24 MAMTA-7 AMB Questionnaire MAMTA-7 Date MAMTA - 7 assessed: 09/10/24 Source: Developed by Drs. Silvano Oneal, Hilda Cardona, David Thrasher and colleagues, with an educational josh from [employer]. Physical exam (Primary Care) Tobacco/Smoking Status: Tobacco use Status Tobacco use date assessed 12/31/24 12/31/24 12:03 Patient Tobacco Use Status Never used Tobacco 12/31/24 12:03 e-Cigarette/Vaping Use Never Used 12/31/24 12:03 Thrive Assessment: Date of Thrive Assessment Date Thrive assessed 08/13/24 12/31/24 12:03 Telehealth Telehealth Telehealth Platform: [facility] Location of provider rendering services: practice address Location of patient: address on file Patient Identification confirmed using: Name, : Yes Telehealth method: voice only Patient verbally consented to treatment: Yes Patient verbally consented to billing insurance company: Yes Patient informed of any privacy concerns related to visit: Yes Minutes spent on Phone/Video with Pt.: 8 Coding Level of Care Code Tele Est Pt Level 2 (99904) Complex EM visit Add On G2211 Diagnoses ADHD (attention deficit hyperactivity disorder), inattentive type F90.0 Mild episode of recurrent major depressive disorder F33.0 Major depression episode severity: mild MAMTA (generalized anxiety disorder) F41.1 Assessment & Plan Assessment & Plan (1) ADHD (attention deficit hyperactivity disorder), inattentive type: Code(s): F90.0 - Attention-deficit hyperactivity disorder, predominantly inattentive type Category: Medical (2) MDD (major depressive disorder), recurrent episode: Code(s): F33.9 - Major depressive disorder, recurrent, unspecified Category: Medical Qualifiers: Major depression episode severity: mild Qualified Code(s): F33.0 - Major depressive disorder, recurrent, mild (3) MAMTA (generalized anxiety disorder): Code(s): F41.1 - Generalized anxiety disorder Category: Medical Plan . Medications: Changed From atomoxetine 25 mg PO DAILY 30 caps 0RF To atomoxetine 25 mg PO BID 60 caps 0RF Discontinued bupropion HCl XL (Wellbutrin XL) total dose 450mg QD Discontinued Reason: Doctor's Order 150 mg PO QAM 90 tabs 1RF
== END 2024-12-31 15:17 | disposition home or self-care (01) ==
LOC: HO.HMCFM 12:03
PROVIDERS: PCP Nurse Practitioner Family; Visit Provider Nurse Practitioner Family
DX: F90.0 Attention-deficit hyperactivity disorder, predominantly inattentive type (principal); F33.0 Major depressive disorder, recurrent, mild; F41.1 Generalized anxiety disorder

== ENCOUNTER → 2024-12-31 12:03 | Outpatient (BNVA) | payer OTHER, SELFPAY | PROVIDERS: PCP Nurse Practitioner Family; Visit Provider Nurse Practitioner Family | DX: Z13.89 Encounter for screening for other disorder (principal) ==

== ENCOUNTER 2025-01-24 15:38 | Outpatient (AMB) | payer OTHER, SELFPAY ==
--- NOTE | 2025-01-24 15:44 | MHC.PC.OV ---
Intake Visit Reasons: med changes Intake Note: Telehealth follow up to review meds Business Analyst Ecommerce Required: No Allergies No Known Allergies Allergy (Verified 01/24/25 16:22) Medication List - Last Reconciled 01/24/25 by NIKI Chang- atomoxetine 25 mg PO BID bupropion HCl XL (Wellbutrin XL) 300 mg PO QAM cholecalciferol (vitamin D3) 25 mcg PO DAILY fluticasone propionate 50 mcg/actuation 1 spray intranasal BID sertraline 50 mg PO DAILY Tobacco use date assessed: 01/24/25 Dental Screening Dental Screen Date: 01/24/25 Did you have a dental visit in the last 12 months?: Yes Did you have a dental problem in the last 6 months where you did not have access to dental care?: No Was dental information given to patient?: Patient has dentist HPI HPI Comments History of Present Illness Details 19 y/o F with MAMTA, MDD, ADHD, Vit D def, deviated nasal septum, trichotillomania Social: In School for [employer], 2026 graduation date, [place] Surgery: None Specialists: Counselor declined @ this time. ENT History of Present Illness - The patient is a 19-year-old female presenting with cognitive concerns, ADHD, and depression. - Reduced bupropion from 450 mg to 150 mg daily without improvement. - Increased Strattera dose to 50 mg daily (25 bid) without cognitive or symptom changes. - Persistent depressive symptoms accompany cognitive issues. - ADHD treatment optimization remains ineffective. - No symptomatic improvement or progress noted. - No new inciting factors identified. - Persistent symptoms led to reevaluation of treatment strategy. Review of Systems - Nervous System: Reports difficulty focusing, cognitive concerns, word-finding issues. Denies improvement from current medications. - Psychiatric: Reports no improvement in depression despite medication changes. Denies suicidal ideation or thoughts of harm to self or others. Assessment and Plan 1. Cognitive Disorder - Discontinue bupropion; evaluate cognitive improvements thereafter. 2. Attention Deficit Hyperactivity Disorder (ADHD) - Increase Strattera to 100 mg daily (25mg 2 tabs BID). This is max dose Reassess effectiveness post-bupropion discontinuation. 3. Depression - Refer to for behavioral therapy RTO 4 weeks, sooner prn Telehealth Attestation The visit was conducted through an audio/video platform due to a telehealth arrangement, and all documentation accurately reflects the interaction and information exchanged. The patient has been explained that this is an interactive (audio/video) telehealth encounter and what that consists of. The patient understands and wishes to proceed. ITT EXIM platform was used. Total time spent caring for the patient today was 21 minutes. This includes time spent before the visit reviewing the chart, time spent during the visit, and time spent after the visit on documentation, reviewing laboratory results, diagnostic imaging, medications, performing a medically necessary evaluation, counseling on diagnoses, care coordination, ordering appropriate tests, ordering appropriate medications, review of tests performed by other providers, reporting test results with the patient, communication with other healthcare providers. [facility] Medical History (Updated 09/10/24 @ 13:24 by Linda Dhaliwal [facility]) Anxiety Surgical History (Updated 06/14/24 @ 11:26 by Genoveva Goel MA) No pertinent past surgical history Family History (Updated 06/14/24 @ 11:27 by Genoveva Goel MA) Sister Substance abuse Father Asthma Mother Hypertension Maternal Grandfather Hypertension Social History (Updated 06/14/24 @ 11:22 by Genoveva Goel MA) Household Members: None Housing: Apartment Housing Other:: dorm room Are you a primary geriatric personal care aide to a significant other at home: No Do you presently have visiting nurse or other home services: No 75 years or older and lives alone: No Alcohol intake: never Patient Tobacco Use Status: Never used Tobacco e-Cigarette/Vaping Use: Never Used service: No Current occupational status: student Cognitive needs: Yes Hearing needs: No Vision needs: No Questionnaire Thrive Questionnaire Date Thrive assessed: 08/13/24 MAMTA-7 AMB Questionnaire MAMTA-7 Date MAMTA - 7 assessed: 09/10/24 Source: Developed by Drs. Silvano Oneal, Hilda Cardona, David Thrasher and colleagues, with an educational josh from [employer]. Physical exam (Primary Care) Tobacco/Smoking Status: Tobacco use Status Tobacco use date assessed 01/24/25 01/24/25 15:46 Patient Tobacco Use Status Never used Tobacco 01/24/25 15:46 e-Cigarette/Vaping Use Never Used 01/24/25 15:46 Thrive Assessment: Date of Thrive Assessment Date Thrive assessed 08/13/24 01/24/25 15:46 Telehealth Telehealth Telehealth Platform[facility] Location of provider rendering services: practice address Location of patient: address on file Patient Identification confirmed using: Name, : Yes Telehealth method: voice only Patient verbally consented to treatment: Yes Patient verbally consented to billing insurance company: Yes Patient informed of any privacy concerns related to visit: Yes Minutes spent on Phone/Video with Pt.: 11 Coding Level of Care Code Tele Est Pt Level 3 (20070) Complex EM visit Add On G2211 Diagnoses ADHD (attention deficit hyperactivity disorder), inattentive type F90.0 MAMTA (generalized anxiety disorder) F41.1 Mild episode of recurrent major depressive disorder F33.0 Major depression episode severity: mild Assessment & Plan Assessment & Plan (1) ADHD (attention deficit hyperactivity disorder), inattentive type: Code(s): F90.0 - Attention-deficit hyperactivity disorder, predominantly inattentive type Category: Medical (2) MAMTA (generalized anxiety disorder): Code(s): F41.1 - Generalized anxiety disorder Category: Medical (3) MDD (major depressive disorder), recurrent episode: Code(s): F33.9 - Major depressive disorder, recurrent, unspecified Category: Medical Qualifiers: Major depression episode severity: mild Qualified Code(s): F33.0 - Major depressive disorder, recurrent, mild Plan . Orders: Referrals Nurse Navigator Referral F33.0 - Major depressive disorder, recurrent, mild, F41.1 - Generalized anxiety disorder, F90.0 - Attention-deficit hyperactivity disorder, predominantly inattentive type Medications: Changed From atomoxetine 25 mg PO BID 60 caps 0RF To atomoxetine 50 mg (2 x 25 mg) PO BID 120 caps 0RF Discontinued bupropion HCl XL (Wellbutrin XL) Discontinued Reason: Doctor's Order 300 mg PO QAM 90 tabs 1RF Patient Instructions: National Suicide and Crisis Lifeline: Available 24 hours a day, 7 days a week, 365 days a year Dial 988 with any telephone to speak to someone immediately [address] [address] , Walk ins [facility] (Mental / Behavioral health therapist: [address] [place] [address] [facility]: [address] [place] [address] Open from 10am - 12pm (walk ins welcome) [facility]: [address] [place] [address] Walk in hours from 10am - 12pm Behavioral health Network: [address] [place] [id number] [place] [phone] Friday through Friday 8am - 8pm Friday and Friday 9am - 5pm Crisis Hotlines Suicide prevention, domestic violence, and other crisis hotlines for youth, young adults, and their friends and families. [facility] Safeline: The [facility] Safeline helps youth who have run away, are thinking about running away, or who already ran away but are ready to come home. Parents and guardians can also contact the hotline if they are worried about their child running away or if their child has already left home. The hotline is available 24 hours a day, seven days a week. Youth, parents, and guardians can also use the online chat feature on the [facility] website to ask for help and get support, [place] [address]. [facility] National Suicide Prevention Lifeline: The National Suicide Prevention Lifeline is a network of local crisis centers that are available 03/03 to provide support for youth and adults who are in any kind of emotional crisis. In addition to the main hotline number listed above, there are several other numbers to call depending on your needs: Setswana Language: Deaf and Hard of Hearin1-422.392.6154 Veterans: Disaster Distress: Anyone can also use their online chat feature on their website. [place] Suicide Prevention Lifeline [facility] Helpline: The [facility] Helpline is available to anyone in [place] who is need of emotional support. Anyone can call or text the helpline to receive help from specially trained volunteers. [place] high school and college students can also get online support through the IMHear_ program. For high school students, volunteers ages 15-18 are available Friday- from 6-9PM. For college students, IMHear_ is available Friday-Friday from 5-9PM. The Viraj Project - The Viraj Project is a 03/03 crisis intervention and suicide prevention hotline for LGBTQ youth. Youth can also text Viraj to for support, or use the online chat feature on the Viraj Project's website. [employer] is available Friday-Friday between 3-10PM. TrevorChat is available seven days a week between 3-10PM. SafeLink: SafeLink is for anyone who is being affected by domestic violence or dating violence. Volunteers at [employer] speak Faroese and Setswana, and [employer] also has a service that can provide translation in more than 130 languages. TTY:
== END 2025-01-24 16:35 | disposition home or self-care (01) ==
LOC: HO.HMCFM 15:38
PROVIDERS: PCP Nurse Practitioner Family; Visit Provider Nurse Practitioner Family
DX: F90.0 Attention-deficit hyperactivity disorder, predominantly inattentive type (principal); F41.1 Generalized anxiety disorder; F33.0 Major depressive disorder, recurrent, mild

== ENCOUNTER → 2025-01-24 15:38 | Outpatient (BNVA) | payer OTHER, SELFPAY | PROVIDERS: PCP Nurse Practitioner Family; Visit Provider Nurse Practitioner Family | DX: Z13.89 Encounter for screening for other disorder (principal) ==

== ENCOUNTER 2025-02-25 13:42 | Outpatient (AMB) | payer OTHER, SELFPAY ==
--- OUTSIDE RECORDS SUMMARY | 2025-02-25 13:43 | XMS_ITS | Encounter Summary ---
Author Organization [facility] Address [address] [place] [phone] Phone Care Team Providers Care Passport Application Examiner Name Role Phone Linda Faria FILLER MACHINE OPERATOR Primary Care Provider Encounter Details Date Type Department Care Team (Late st Contact Info) Description 12/27/2024 Procedure Pass [facility], Ct Scan - [address] [address] Social History Tobacco Use Types Packs/Day Years Used Date Smoking Tobacco: Never Assessed Education Answer Date Recorded Are you interested in more education? Not on [place] e 12/27/2024 Are you concerned about learning? Not on file 12/27/2024 No 12/27/2024 No 12/27/2024 Digital Access Answer Date Recorded No 12/27/2024 No 12/27/2024 Reliable internet access at home? Not on file 12/27/2024 Device with a working camera? Not on file Comments Unknown Sex and Gender Information Value Date Recorded Sex Assigned at Not on file Legal Sex Female 3:51 PM EDT Gender Identity Not on file Sexual Orientation Not on file documented as of this encounter Functional Status * Calculated C-SSRS Risk Score (Lifetime/Recent) Answer Date of Assessment Author No Risk Indicated 12/27/2024 4:52 PM EDT Gem Caldera RN * [place] Suicide Severity Rating Scale (Screener/Recent Self-Report) Question Answer Date of Assessment Author 1. Wish to be (Past 1 Month) No 025 4:52 PM EDT Gem Saldaña RN 2. Non-Specific Active Suici carla Thoughts (Past 1 Month) No 12/27/2024 4:52 PM EDT Ramos Saldaña RN 6. Suicidal Behavior (Lifetime) No 4:52 PM EDT Gem Saldaña RN documented as of this encounter Plan of Treatment Not on file documented as of this encounter Visit Diagnoses Not on filedocumented in this encounter Care Teams Passport Application Examiner Relationship Specialty Start Date End Date Linda Faria NP [address] [place] [phone] [email or web address] PCP - General 12/27/24 documented as of this encounter Additional Source Comments The information contained in this document represents components of the legal health record. It is not the complete legal health record.[facility]
--- NOTE | 2025-02-25 13:45 | A.OFFPC_ITS ---
Intake Visit Reasons: f/u medication review Intake Note: Telehealth follow up to review meds Biometric Fingerprinting Technician Required: No Allergies No Known Allergies Allergy (Verified 02/25/25 15:18) Medication List - Last Reconciled 02/25/25 by ABDIRAHMAN ChangP- atomoxetine 50 mg (2 x 25 mg) PO BID cholecalciferol (vitamin D3) 25 mcg PO DAILY fluticasone propionate 50 mcg/actuation 1 spray intranasal BID triamcinolone acetonide 0.1% 1 appl topical BID Tobacco use date assessed: 02/25/25 Dental Screening Dental Screen Date: 02/25/25 Did you have a dental visit in the last 12 months?: Yes Did you have a dental problem in the last 6 months where you did not have access to dental care?: No Was dental information given to patient?: Patient has dentist HPI HPI Comments History of Present Illness Details 19 y/o F with MAMTA, MDD, ADHD, Vit D def, deviated nasal septum, trichotillomania Social: In School for [email or web address], 2026 graduation date, [place] Surgery: None Specialists: Counselor declined @ this time. ENT History of Present Illness - The patient is a 19-year-old female pr esenting with management of ADHD and medication evaluation. - Resolved cognitive issues after Buprop ion discontinuation. - Inconsistent adherence to prescribed S trattera dosage due to forgetfulness. Not taking PM dose. - Discontinued Sertraline, as was told b y pharmacy not take w wellbutrin; forgot to take so just stopped. This was about 1 months ago. I did not know this. She did not taper.. - Reports effective management of exam-r elated anxiety after using propanolol from her uncle. Wonder about this Review of Systems - Psychiatric: Reports improvement in co gnitive issues, difficulty with medication adherence; denies intentional medication nonadherence. - Neurologic: Reports unresolved managem ent in ADHD symptoms. - Psychological: Reports exam-related an xiety managed with medication. Results - Tests and Diagnostics: Tunespeakight test was discussed for medication assessment. Assessment and Plan 1. Attention-Deficit/Hyperactivity Disor claude (ADHD) - Take Straterra 100mg QD OR 50MG BID. - Order GeneSight testing for medication guidance. Reviewed how we cannot say this med isnt working as she was having side effects from wellbutrin and abuptly stopped the sertraline during this; not taking consistent. 2. Anxiety - Await GeneSight results before making medication changes. - Recognize effective situational manage ment with propanolol. Made aware this will not help ADHD or MDD. can consider but not until after GeneSight is reviewed 3. Medication Discontinuation (Sertralin e and Bupropion) - Resolve any medication effects, monito r patient response post-discontinuation. - No further action required until GeneS ight results are available. My office will arrange for f/u after testing is rec'd I will provide copy to her, too. Telehealth Attestation The documentation accurately reflects the telehealth visit conducted via phone. The patient has been explained that this is an interactive (audio/video) telehealth encounter and what that consists of. The patient understands and wishes to proceed. O[employer]orks platform was used. Total time spent caring for the patient today was 21 minutes. This includes time spent before the visit reviewing the chart, time spent during the visit, and time spent after the visit on documentation, reviewing laboratory results, diagnostic imaging, medications, performing a medically necessary evaluation, counseling on diagnoses, care coordination, ordering appropriate tests, ordering appropriate medications, review of tests performed by other providers, reporting test results with the patient, communication with other healthcare providers. [facility] Medical History (Updated 09/10/24 @ 13:24 by Linda Dhaliwal [facility]) Anxiety Surgical History (Updated 06/14/24 @ 11:26 by Genoveva Goel MA) No pertinent past surgical history Family History (Updated 06/14/24 @ 11:27 by Genoveva Goel MA) Sister Substance abuse Father Asthma Mother Hypertension Maternal Grandfather Hypertension Social History (Updated 06/14/24 @ 11:22 by Genoveva Goel MA) Household Members: None Housing: Apartment Housing Other:: dorm room Are you a primary career center advisor to a significant other at home: No Do you presently have visiting nurse or other home services: No 75 years or older and lives alone: No Alcohol intake: never Patient Tobacco Use Status: Never used Tobacco e-Cigarette/Vaping Use: Never Used service: No Current occupational status: student Cognitive needs: Yes Hearing needs: No Vision needs: No Questionnaire Thrive Questionnaire Date Thrive assessed: 08/13/24 MAMTA-7 AMB Questionnaire MAMTA-7 Date MAMTA - 7 assessed: 09/10/24 Source: Developed by Drs. Silvano Oneal, Hilda Cardona, David Thrasher and colleagues, with an educational josh from [employer]. Physical exam (Primary Care) Tobacco/Smoking Status: Tobacco use Status Tobacco use date assessed 02/25/25 02/25/25 13:48 Patient Tobacco Use Status Never used Tobacco 02/25/25 13:48 e-Cigarette/Vaping Use Never Used 02/25/25 13:48 Thrive Assessment: Date of Thrive Assessment Date Thrive assessed 08/13/24 02/25/25 13:48 Telehealth Telehealth Telehealth Platform: O[employer] Location of provider rendering services: practice address Location of patient: address on file Patient Identification confirmed using: Name, : Yes Telehealth method: voice only Patient verbally consented to treatment: Yes Patient verbally consented to billing insurance company: Yes Patient informed of any privacy concerns related to visit: Yes Minutes spent on Phone/Video with Pt.: 12 Results Reviewed Results Reviewed: Patient Medical Record Information ABBY MARTI : 2005 Clinician: Linda Dhaliwal Confirmed: 02/25/2025 7:43 PM Psychotropic ICD-10 Code(s) F33.1 - Major depressive disorder, recurrent, moderate F41.1 - Generalized anxiety disorder F90.2 - Attention-deficit hyperactivity disorder, combined type Failed Medications Zoloft? ( sertraline ), Strattera? ( atomoxetine ), Wellbutrin? ( bupropion ) Treatment Plan [x]I'm considering augmenting therapy with a new medication or starting/switching to a new medication List all the [facility] medications that you are considering for augmentation or starting/switching to BuSpar? ( buspirone ), Celexa? ( citalopram ), Focalin? ( dexmethylphenidate ) [x]I'm considering a dosage adjustment to currently prescribed medication(s) List all the [facility] medications that you are considering for dosage adjustment Strattera? ( atomoxetine ) Have you considered non-genetic factors to make a preliminary drug selection, including a personalized medication decision based on the patient's diagnosis, the patient's other medical conditions, other medications the patient is taking, professional judgment, clinical science and basic science pertinent to the drug (e.g. mechanism of action, side effects), the patient's past medical history, and when pertinent, family history and the patient's preferences and values? Note: Many insurance providers require clinicians to consider non-genetic factors when ordering this test. 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 Assessment & Plan Assessment & Plan (1) MAMTA (generalized anxiety disorder): Code(s): F41.1 - Generalized anxiety disorder Category: Medical (2) MDD (major depressive disorder), recurrent episode: Code(s): F33.9 - Major depressive disorder, recurrent, unspecified Category: Medical Qualifiers: Major depression episode severity: mild Qualified Code(s): F33.0 - Major depressive disorder, recurrent, mild (3) ADHD (attention deficit hyperactivity disorder), inattentive type: Code(s): F90.0 - Attention-deficit hyperactivity disorder, predominantly inattentive type Category: Medical (4) Trichotillomania: Code(s): F63.3 - Trichotillomania Category: Medical Plan .
== END 2025-02-25 15:48 | disposition home or self-care (01) ==
LOC: HO.HMCFM 13:42
PROVIDERS: PCP Nurse Practitioner Family; Visit Provider Nurse Practitioner Family
DX: F41.1 Generalized anxiety disorder (principal); F33.0 Major depressive disorder, recurrent, mild; F90.0 Attention-deficit hyperactivity disorder, predominantly inattentive type; F63.3 Trichotillomania

== ENCOUNTER 2025-04-19 10:43 | Outpatient (AMB) | payer OTHER, SELFPAY ==
--- NOTE | 2025-04-19 11:57 | A.OFFPC_ITS ---
Intake Visit Reasons: review genesight testing Intake Note: Telehealth to review genesight testing Gear Machinist Required: No Allergies No Known Allergies Allergy (Verified 04/19/25 13:54) Medication List - Last Reconciled 04/19/25 by ABDIRAHMAN ChangP- atomoxetine 50 mg (2 x 25 mg) PO BID cholecalciferol (vitamin D3) 25 mcg PO DAILY fluticasone propionate 50 mcg/actuation 1 spray intranasal BID triamcinolone acetonide 0.1% 1 appl topical BID Tobacco use date assessed: 02/25/25 Dental Screening Dental Screen Date: 02/25/25 HPI HPI Comments History of Present Illness Details 19 y/o F with MAMTA, MDD, ADHD, Vit D def, deviated nasal septum, trichotillomania Social: In School for [employer], 2026 graduation date, [place] Surgery: None Specialists: Counselor declined @ this time. ENT Telehealth to review GeneSight testing Document reviewed w/ her Gene-Drug interactions for wellbutrin and sertraline for which she has stopped. + Straterra which she is still on; takin g QD. But does not think its working great + Propranolol; used for test anxiety. th ought this helped. Mom does not want her on this - unsure why. Needs meds for MDD/MAMTA/ADHD Plan: Stopping Straterra: Take once per day x 1 week. Then Friday, Friday, Friday x 1 week. Then stop. Wait 2 weeks before starting Qelbree, because you are a slow metabolizer of Straterra, need time to wash out your body before starting a new medication. Start Qelbree 200mg daily, take in the morning. Titrate to effect. Propranolol is ok to use PRN anxiety -- however this will not help ADHD/MDD. Mom does not want her taking this ... Reviewed Focalin as alternative -plan to start w non-stimulant first. Difficult visit d/t connection issues. Detailed info sent via portal. We should follow up on this in 6-8 weeks to see how it is going. My office will reach out to arrange. Are you able to drive to a local [employer] or parking lot off campus for our next visit ? I will have my office contact her to schedule. Telehealth Attestation This visit was conducted via telehealth with consultations done through secure electronic communications, ensuring patient confidentiality and data security in compliance with HIPAA requirements. The patient has been explained that this is an interactive (audio/video) telehealth encounter and what that consists of. The patient understands and wishes to proceed. [facility] platform was used. Total time spent caring for the patient today was 35 minutes. This includes time spent before the visit reviewing the chart, time spent during the visit, and time spent after the visit on documentation, reviewing laboratory results, di agnostic imaging, medications, performing a medically necessary evaluation, counseling on diagnoses, care coordination, ordering appropriate tests, ordering appropriate medications, review of tests performed by other providers, reporting test results with the patient, communication with other healthcare providers. [facility] Medical History (Updated 04/19/25 @ 15:53 by Linda Dhaliwal [facility]) Anxiety Surgical History (Updated 06/14/24 @ 11:26 by Genoveva Goel MA) No pertinent past surgical history Family History (Updated 06/14/24 @ 11:27 by Genoveva Goel MA) Sister Substance abuse Father Asthma Mother Hypertension Maternal Grandfather Hypertension Social History (Updated 06/14/24 @ 11:22 by Genoveva Goel MA) Household Members: None Housing: Apartment Housing Other:: dorm room Are you a primary transitional care nurse to a significant other at home: No Do you presently have visiting nurse or other home services: No 75 years or older and lives alone: No Alcohol intake: never Patient Tobacco Use Status: Never used Tobacco e-Cigarette/Vaping Use: Never Used service: No Current occupational status: student Cognitive needs: Yes Hearing needs: No Vision needs: No Questionnaire Thrive Questionnaire Date Thrive assessed: 08/13/24 MAMTA-7 AMB Questionnaire MAMTA-7 Date MAMTA - 7 assessed: 09/10/24 Source: Developed by Drs. Silvano Oneal, Hilda Cardona, David Thrasher and colleagues, with an educational josh from [employer]. Physical exam (Primary Care) Tobacco/Smoking Status: Tobacco use Status Tobacco use date assessed 02/25/25 04/19/25 11:57 Patient Tobacco Use Status Never used Tobacco 04/19/25 11:57 e-Cigarette/Vaping Use Never Used 04/19/25 11:57 Thrive Assessment: Date of Thrive Assessment Date Thrive assessed 08/13/24 04/19/25 11:57 Telehealth Telehealth Telehealth Platform: [facility] Location of provider rendering services: practice address Location of patient: address on file Patient Identification confirmed using: Name, : Yes Telehealth method: voice only Patient verbally consented to treatment: Yes Patient verbally consented to billing insurance company: Yes Patient informed of any privacy concerns related to visit: Yes Minutes spent on Phone/Video with Pt.: 20 Coding Level of Care Code Tele Est Pt Level 4 (69801) Complex EM visit Add On G2211 Diagnoses MAMTA (generalized anxiety disorder) F41.1 Mild episode of recurrent major depressive disorder F33.0 Major depression episode severity: mild ADHD (attention deficit hyperactivity disorder), inattentive type F90.0 Encounter to discuss test results Z71.2 Assessment & Plan Assessment & Plan (1) MAMTA (generalized anxiety disorder): Code(s): F41.1 - Generalized anxiety disorder Category: Medical (2) MDD (major depressive disorder), recurrent episode: Code(s): F33.9 - Major depressive disorder, recurrent, unspecified Category: Medical Qualifiers: Major depression episode severity: mild Qualified Code(s): F33.0 - Major depressive disorder, recurrent, mild (3) ADHD (attention deficit hyperactivity disorder), inattentive type: Code(s): F90.0 - Attention-deficit hyperactivity disorder, predominantly inattentive type Category: Medical (4) Encounter to discuss test results: Comment: [facility] Testing 03/2025 Code(s): Z71.2 - Person consulting for explanation of examination or test findings Category: Medical Plan . Medications: New viloxazine ER (Qelbree) 200 mg (2 x 100 mg) PO DAILY 30 caps 1RF Discontinued atomoxetine Discontinued Reason: Doctor's Order 50 mg (2 x 25 mg) PO BID 120 caps 0RF
--- OUTSIDE RECORDS SUMMARY | 2025-04-19 12:41 | XMS_ITS | Encounter Summary ---
Author Organization [facility] Address [address] [place] [phone] Phone Care Team Providers Care Continuous Dryout Operator Helper Name Role Phone Linda Faria BINDERY HELPER Primary Care Provider Encounter Details Date Type Department Care Team (Late st Contact Info) Description 12/27/2024 Procedure Pass [facility], Ct Scan - [address] [address] Social History Tobacco Use Types Packs/Day Years [...] 4:52 PM EDT Gem Caldera RN * Mallory Suicide Severity Rating Scale (Screener/Recent Self-Report) Question [...] on filedocumented in this encounter Care Teams Continuous Dryout Operator Helper Relationship Specialty Start Date End Date Linda Faria NP [address] [place] [phone] [email or web address] PCP - General 12/27/24 documented as of this encounter Additional Source Comments The information contained in this document represents components of the legal health record. It is not the complete legal health record.[facility]
--- OUTSIDE RECORDS SUMMARY | 2025-04-19 12:41 | XMS_ITS | Clinical Summary ---
Author Organization [facility] Address [address] [place] [address] Phone Care Team Providers Care Retail Inventory Control Clerk Name Role Phone Linda Faria NP Primary Care Provider Allergies No known active allergies Medications buPROPion (WELLBUTRIN XL) 300 MG ER 24 hr tablet Take 300 mg by mouth every morning. 11/29/2024 Active sertraline (ZOLOFT) 50 MG tablet Take 1 tablet by mouth every morning. 10/11/2024 Active buPROPion (WELLBUTRIN XL) 150 MG ER 24 hr tablet TAKE 1 TABLET BY MOUTH EVERY MORNING *TOTAL 450 MG DAILY* 12/05/2024 Active Social History Tobacco Use Types Packs/Day Years [...] on file Sexual Orientation Not on file Last Filed Vital Signs Vital Sign Reading Time Taken Comments Blood Pressure 153/109 12/27/2024 8:00 PM EDT Pulse 98 12/27/2024 8:00 PM EDT Temperature 36.8 C (98.2 F) 12/27/2024 8:00 PM EDT Respiratory Rate 18 12/27/2024 8:00 PM EDT Oxygen Saturation 98% 12/27/2024 8:00 PM EDT Inhaled Oxygen Concentration - - Weight 61.2 kg (135 lb) 12/27/2024 4:58 PM EDT Height 160 cm (5' 3 ) 12/27/2024 4:07 PM EDT Body Mass Index 23.91 12/27/2024 4:07 PM EDT Plan of Treatment Health Maintenance Due Date Last Done Comments MMR VACCINES (1 of 1 - Standard series) 2005 DEVELOPMENTAL/BEHAVIORAL SCREENING (PHQ, PSC, or SWYC) 2007 HEPATITIS A VACCINES (2 of 2 - 2-dose series) 12/02/2015 06/02/2015 DEPRESSION SCREENING 2016 COMBINED DTaP,Tdap,Td (2 - T d or Tdap) 07/23/2016 06/25/2016 SMOKING Hx and SMOKELESS TOBACCO SCREENING 2017 VARICELLA VACCINES (1 of 2 - 13+ 2-dose series) 2017 CHLAMYDIA SCREENING 2020 ADOLESCENT UNIVERSAL LIPID SCREENING 2021 HEPATITIS C SCREENING 2022 HIV ONE-TIME SCREENING (18-6 5 YEARS) 2022 INFLUENZA VACCINE (#1) 2025 COVID-19 VACCINE (1 - 2023-2 5 season) 2025 HPV VACCINES Completed 07/09/2017, 06/25/2016 MENINGOCOCCAL VACCINES (ACWY) Completed , 06/25/2016 MENINGOCOCCAL VACCINES (B) Completed 01/15, 08/13/2022 HIB VACCINES Aged Out No longer eligi ble based on patient's age to complete this topic PNEUMOCOCCAL VACCINES (0-49 years) Aged Out No longer eligible b ased on patient's age to complete this topic Medical Devices Not on file Insurance [facility] [employer] PL[employer] [facility] DIRECT CONNECTORCARE DIRECT [employer] [place] [address] [place] [address] CONNECTORCARE DIRECT [facility] CONNECTORCARE DIRECT Care Teams Retail Inventory Control Clerk Relationship Specialty Start Date End Date Linda Faria NP [address] [place] [phone] [email or web address] PCP - General 12/27/24 Additional Source Comments The information contained in this document represents components of the legal health record. It is not the complete legal health record.[facility]
== END 2025-04-19 15:55 | disposition home or self-care (01) ==
LOC: HO.HMCFM 10:43
PROVIDERS: PCP Nurse Practitioner Family; Visit Provider Nurse Practitioner Family
DX: F41.1 Generalized anxiety disorder (principal); F33.0 Major depressive disorder, recurrent, mild; F90.0 Attention-deficit hyperactivity disorder, predominantly inattentive type; Z71.2 Person consulting for explanation of examination or test findings

== ENCOUNTER 2025-06-14 14:49 | Outpatient (AMB) | payer OTHER, SELFPAY ==
--- NOTE | 2025-06-14 14:50 | A.OFFPC_ITS ---
Intake Visit Reasons: fu Qelbree start Allergies No Known Allergies Allergy (Verified 06/14/25 14:50) Medication List - Last Reconciled 06/14/25 by Linda Dhaliwal [facility] cholecalciferol (vitamin D3) 25 mcg PO DAILY fluticasone propionate 50 mcg/actuation 1 spray intranasal BID triamcinolone acetonide 0.1% 1 appl topical BID viloxazine ER (Qelbree) 200 mg (2 x 100 mg) PO DAILY Tobacco use date assessed: 02/25/25 Dental Screening Dental Screen Date: 02/25/25 HPI HPI Comments History of Present Illness Details 19 y/o F with MAMTA, MDD, ADHD, Vit D def, deviated nasal septum, trichotillomania Social: In School for [employer], 2026 graduation date, [place] Surgery: None Specialists: Counselor declined @ this time. ENT History of Present Illness The patient is a 19-year-old female presenting for a follow-up on medication management for Attention-Deficit/Hyperactivity Disorder. Attention-Deficit/Hyperactivity Disorder: - The patient is following up on her tra nsition from Strattera to Qelbree for ADHD. - She reports that a previous side effec t of feeling unable to engage in conversations, which occurred on a combination of Strattera and Wellbutrin, has resolved since stopping Strattera. - The patient started taking Qelbree on May 20 and has missed a few doses. - She has not noticed a significant impr ovement in her symptoms of stress, distraction, or ability to stay on top of her schoolwork. - She is not experiencing any side effec ts from Qelbree. - The patient has not used any propranol ol recently, stating she only ever had one tablet from her uncle over the summer. Review of Systems - Psychiatric: Reports feeling stressed with classes but denies feeling overly anxious or depressed outside of schoolwork. Reports resolution of the previous feeling of being unable to engage in conversations. - Neurological: Reports ongoing issues w ith distraction and paying attention. Physical Exam Limited Exam Sitting in dorm room Awake alert pleasant Smiling and engaging Skin PWD Assessment and Plan 1. Attention-Deficit/Hyperactivity Disor claude - The patient is tolerating Qelbree well without side effects after transi tioning from Strattera. - While she has not yet seen a significa nt benefit in her ADHD symptoms, she wishes to continue the medication for a longer trial period. - The plan is to continue Qelbree at the current dosage. - A refill will be sent to the [facility] in [facility] to ensure an adequate supply through the upcoming holiday. - A follow-up video visit is scheduled July 04 at 9:45 a.m. to re- evaluate the medication's efficacy. - Propranolol was noted as not being use d and was removed from her record. Patient was given time to ask questions. All questions were answered to their satisfaction. Telehealth Attestation This appointment was conducted via a synchronous audio-video platform. The patient was seen and heard clearly, and she confirmed she could see and hear the provider well. The patient consented to the telehealth visit. The patient has been explained that this is an interactive (audio/video) telehealth encounter and what that consists of. The patient understands and wishes to proceed. [employer] platform was used. Total time spent caring for the patient today was 22 minutes. This includes time spent before the visit reviewing the chart, time spent during the visit, and time spent after the visit on documentation, reviewing laboratory results, diagnostic imaging, medications, performing a medically necessary evaluation, counseling on diagnoses, care coordination, ordering appropriate tests, ordering appropriate medications, review of tests performed by other providers, reporting test results with the patient, communication with other healthcare providers. [facility] Medical History (Updated 04/19/25 @ 15:53 by Linda Dhaliwal, [facility]) Anxiety Surgical History (Updated 06/14/24 @ 11:26 by Genoveva Goel MA) No pertinent past surgical history Family History (Updated 06/14/24 @ 11:27 by Genoveva Goel MA) Sister Substance abuse Father Asthma Mother Hypertension Maternal Grandfather Hypertension Social History (Updated 06/14/24 @ 11:22 by Genoveva Goel MA) Household Members: None Housing: Apartment Housing Other:: dorm room Are you a primary group care worker to a significant other at home: No Do you presently have visiting nurse or other home services: No 75 years or older and lives alone: No Alcohol intake: never Patient Tobacco Use Status: Never used Tobacco e-Cigarette/Vaping Use: Never Used service: No Current occupational status: student Cognitive needs: Yes Hearing needs: No Vision needs: No Questionnaire Thrive Questionnaire Date Thrive assessed: 08/13/24 I am a: Patient What is your living situation today?: I have a steady place to live Within the past 12 months, did the food you bought not last and you didn't have the money to get more?: Never true Within the past 12 months, did you worry whether your food would run out before you got money to buy more?: Never true Do you have trouble paying for medicines?: No Do you have trouble getting transportation to medical appointments?: No Do you have trouble paying your heating and electricity bill?: No Do you have trouble taking care of your child, family member or friend?: No Do you have trouble with day-to-day activities such as bathing, preparing meals, shopping, managing finances, etc.?: No Are you currently unemployed and looking for a job?: No Are you interested in more education?: Yes Please select the resources that you would like help with: None Currently or been in a relationship where the following occur: No concerns reported THRIVE Score: 0 MAMTA-7 AMB Questionnaire MAMTA-7 Date MAMTA - 7 assessed: 09/10/24 Source: Developed by Drs. Silvano Oneal, Hilda Cardona, David Thrasher and colleagues, with an educational josh from [employer]. Physical exam (Primary Care) Tobacco/Smoking Status: Tobacco use Status Tobacco use date assessed 02/25/25 06/14/25 14:51 Patient Tobacco Use Status Never used Tobacco 06/14/25 14:51 e-Cigarette/Vaping Use Never Used 06/14/25 14:51 Thrive Assessment: Date of Thrive Assessment Date Thrive assessed 08/13/24 06/14/25 14:51 Currently or been in a relationship where the following occur: No concerns reported Telehealth Telehealth Telehealth Platform: [facility] Location of provider rendering services: practice address Location of patient: address on file Patient Identification confirmed using: Name, : Yes Telehealth method: video Patient verbally consented to treatment: Yes Patient verbally consented to billing insurance company: Yes Patient informed of any privacy concerns related to visit: Yes Minutes spent on Phone/Video with Pt.: 9 Coding Level of Care Code Tele Est Pt Level 3 (16386) Complex EM visit Add On G2211 Diagnoses ADHD (attention deficit hyperactivity disorder), inattentive type F90.0 MAMTA (generalized anxiety disorder) F41.1 Mild episode of recurrent major depressive disorder F33.0 Major depression episode severity: mild Assessment & Plan Assessment & Plan (1) ADHD (attention deficit hyperactivity disorder), inattentive type: Code(s): F90.0 - Attention-deficit hyperactivity disorder, predominantly inattentive type Category: Medical (2) MAMTA (generalized anxiety disorder): Code(s): F41.1 - Generalized anxiety disorder Category: Medical (3) MDD (major depressive disorder), recurrent episode: Code(s): F33.9 - Major depressive disorder, recurrent, unspecified Category: Medical Qualifiers: Major depression episode severity: mild Qualified Code(s): F33.0 - Major depressive disorder, recurrent, mild Plan . Medications: Refilled viloxazine ER (Qelbree) 200 mg (2 x 100 mg) PO DAILY 60 caps 1RF
--- OUTSIDE RECORDS SUMMARY | 2025-06-14 17:53 | XMS_ITS | Data Portability ---
Author Organization [place] - [facility], Allergy Address [address] [place] [address] Care Team Providers Care Kier Operator Name Role Phone CLINTON REES Primary Care Provider Assessment Encounter Date Assessment Date Assessment LastModified by Organization Details LastModified Time 04/08/2025 04/08/2025 19 year old female presents for evaluation of nasal congestion and snoring. Nasal endoscopy demonstrated septal spur to the left, mild posterior right septal deviation, and bilateral mucoid rhinorrhea. Recommended allergy testing for further evaluation. She will follow up to review the results. If allergy workup is negative, may consider CT sinus and surgical consult for septoplasty. Patient agrees with the plan and all questions were answered. We will try to obtain copy of PSG results for review. whitney Not available 04/08/2025 17:50:25 Plan of Treatment Reminders Order Date Submit Date Provider Last Modified By Organization Details Last Modified Time Details Appointments None record ed. Lab None record ed. Referral None record ed. Procedures None record ed. Surgeries None record ed. Imaging None record ed. Medication Orders None record ed. Patient TargetsNo targets recorded. Patient InstructionsNo instructions recorded. Reason for Referral None Reported. Problems Name Problem SNOMED Code Status Onset Date Resolution Date Notes Provider Name and Address Organization Details Recorded Time Nasal congestion 29320971 Active 025 DINO CLIFTON PA-C [address], [address], [place] - [facility] 17:48:33 Deviated nasal septum 591053860 Active 025 DINO CLIFTON PA-C [address] [place] [address], [place], [address], [facility] - [facility] 17:48:37 Chronic rhinitis 32888683 Active 025 DINO CLIFTON PA-C [address] [place] [address],[facility] [address], [place], [address], [facility] - [facility] 17:48:44 Problem Notes None recorded. Procedures Surgical History Date Name Laterality Status Provider Name and Address Organization Details Recorded Time 04/08/2025 NasalEndos copy_DP completed DINO CLIFTON PA-C [address] [place] [address], [place], [address], [facility] - [facility] 04/08/2025 17:45:35 Imaging Results None recorded. Procedure Notes None recorded. Medical Equipment None Reported. Allergies No known drug allergies Medications Name Sig Start Date Stop Date Status Note LastModified by Organization Details LastModified Time triamcinolon e acetonide 0.1 % topical cream APPLY TO AFFECTED AREA TWICE A DAY active Not Available Not Available No t Available fluticasone propionate 50 mcg/actuatio n nasal spray,suspen naye 1 SPRAY INTRANASALL Y 2 TIMES A DAY active Not Available Not Available No t Available sertraline 50 mg tablet TAKE 1 TABLET BY MOUTH EVERY DAY active Not Available Not Available No t Available atomoxetine 10 mg capsule TAKE 1 CAPSULE BY MOUTH EVERY DAY active Not Available Not Available No t Available atomoxetine 25 mg capsule TAKE 2 CAPSULES BY MOUTH TWICE A DAY active Not Available Not Available No t Available bupropion HCl XL 300 mg 24 hr tablet, extended release TAKE 1 TABLET BY MOUTH EVERY MORNING active Not Available Not Available No t Available bupropion HCl XL 150 mg 24 hr tablet, extended release TAKE 1 TABLET BY MOUTH EVERY MORNING *TOTAL 450 MG DAILY* active Not Available Not Available No t Available Vitals Date Recorded Body height Body mass index (BMI) Body mass index (BMI) [Percentile] Per age and sex Body weight Provider Name and Address Organization Details Last Updated DateTime 04/08/2025 157.48 cm 24.7 kg/m2 75 % 06963.97 g Vanessa Payan [place] - [facility] 04/08/2025 13:49:14 Social History None recorded. Functional Status Question Answer Note LastModified by Organization D etails LastModified Time What is your level of alcohol consumption? None [email or web address] Information not available 04/08/2025 Mental Status None recorded. Family History Nothing Reported. Medical History Condition Response Allergies/Hayfever N Heart Problems N Anxiety N Tonsil Infections N Emphysema N Migraines N Thyroid Problems N Glaucoma N Developmental Delay N Depression N COPD N Nasal or Sinus Problems N Anemia N Immune System Disorder N Anesthesia Complications N Heart Attack (AR) N Other Skin Condition N Diabetes N Rhinitis N Bleeding Disorder N Food Allergy N Hearing Loss N Arthritis N Hyperlipidemia N Cancer N Stroke N Dementia N Nasal polyps N Asthma N Sleep Disorder N High Cholesterol N GERD/Reflux N Liver Disease N Headaches N Fibromyalgia N Hypertension N Speech Delay N Kidney Disease N Gynecological HistoryNo gynecological history recorded. Obstetrics History GPAL:G 0 P 0 0 0 0 Past Encounters Encounter ID Performer Location Encounter Start Date Encounter Closed Date Diagnosis/Indication Diagnosis SNOMED-CT Code Diagnosis ICD10 Code Diagnosis IMO Codes Diagnosis Note [id number] DINO CLIFTON PA-C [facility] [address] [address] 04/08/2025 13:40:26 04/08/2025 14:14:06 Nasal congestion 05772296 R09.81 19222 Deviated nasal septum 12 5147610 J34.2 055647 Chronic rhinitis 0875069 6 J31.0 2545 Health Concerns Section Related Observation LastModified by Organization Detai ls LastModified Time None Recorded Concern Status LastModified by Organization Details LastModified Time None Recorded Advance Directives Directive None Recorded Payers Insurance Date Sequence Insurance Name Policy Number Policy Gama Covered Member ID Gama Member ID Guarantor Name 04/12/2025 1 [facility] [employer] [facility] ([id number]) [id number] Flavia Cook [id number] Flavia Cook Notes Date Note Type Note Provider Name and Address Organization Details Recorded Time 04/08/2025 text/html ROS as noted in the HPI 19 year old female presents for evaluation of nasal congestion and snoring. She reports history of nasal trauma requiring stitches when she was 4 years old, but denies prior nasal surgeries. She had PSG in July and reports this was negative. She continues to snore and have nasal congestion L>R. Denies history of allergic rhinitis or chronic sinusitis. Has tried Flonase with minimal improvement. DINO CLIFTON PA-C [address] [address], [place], [address], [facility] - [facility] 04/08/2025 17:50:53 OBGyn Episode No OBEpisode recorded.
--- OUTSIDE RECORDS SUMMARY | 2025-06-14 17:53 | XMS_ITS | Clinical Summary ---
Author Organization [facility] Address [address] [facility] [address] [place] [phone] Phone Care Team Providers Care Case Packer Name Role Phone Linda Faria NP Primary [...] 2022 INFLUENZA VACCINE (#1) 2025 COVID-19 VACCINE ( - 2024-2 6 season) 2025 HPV VACCINES Completed 07/09/2017, 06/25/2016 MENINGOCOCCAL VACCINES (ACWY) Completed , 06/25/2016 MENINGOCOCCAL VACCINES (B) Completed 01/15, 08/13/2022 HIB VACCINES Aged Out No longer eligi ble based on patient's age to complete this topic PNEUMOCOCCAL VACCINES (0-49 years) Aged Out No longer eligible b ased on patient's age to complete this topic Medical Devices Not on file Insurance [facility] [employer] PLANS [facility] [employer] DIRECT [employer] [place] [address] [place] [address] CONNECTORCARE DIRECT [facility] CONNECTORCARE DIRECT Care Teams Case Packer Relationship Specialty Start Date End Date Linda Faria NP [address] [place] [address] [email or web address] PCP - General 12/27/24 Additional Source Comments The information contained in this document represents components of the legal health record. It is not the complete legal health record.[facility]
--- OUTSIDE RECORDS SUMMARY | 2025-06-14 17:53 | XMS_ITS | Encounter Summary ---
Author Organization [facility] Address [address] [facility] [address] [place] [address] Phone Care Team Providers Care Brass Cutter Name Role Phone Linda Faria MEDICAL RECORD LIBRARIANS TEACHER Primary Care Provider Encounter Details Date Type Department Care Team (Late st Contact Info) Description 12/27/2024 Procedure Pass [facility], Ct Scan - [address] [address] Social History Tobacco Use Types Packs/Day Years [...] 4:52 PM EDT Gem Caldera RN * [place] Suicide Severity Rating Scale (Screener/Recent Self-Report) Question [...] on filedocumented in this encounter Care Teams Brass Cutter Relationship Specialty Start Date End Date Linda Faria NP [address] [place] [address] [email or web address] PCP - General 12/27/24 documented as of this encounter Additional Source Comments The information contained in this document represents components of the legal health record. It is not the complete legal health record.[facility]
== END 2025-06-14 16:14 | disposition home or self-care (01) ==
LOC: HO.HMCFM 14:49
PROVIDERS: PCP Nurse Practitioner Family; Visit Provider Nurse Practitioner Family
DX: F90.0 Attention-deficit hyperactivity disorder, predominantly inattentive type (principal); F41.1 Generalized anxiety disorder; F33.0 Major depressive disorder, recurrent, mild

== ENCOUNTER 2025-07-04 09:13 | Outpatient (AMB) | payer OTHER, SELFPAY ==
--- NOTE | 2025-07-04 09:11 | A.OFFPC_ITS ---
Intake Visit Reasons: FU ADHD Intake Note: Telehealth to follow up on adhd Product Development Scientist Required: No Allergies No Known Allergies Allergy (Verified 07/04/25 09:12) Tobacco use date assessed: 07/04/25 Dental Screening Dental Screen Date: 07/04/25 Did you have a dental visit in the last 12 months?: Yes Did you have a dental problem in the last 6 months where you did not have access to dental care?: No Was dental information given to patient?: Patient has dentist HPI HPI Comments History of Present Illness Details 20 y/o F with MAMTA, MDD, ADHD, Vit D def, deviated nasal septum, trichotillomania Social: In [employer] for [employer], 2026 graduation date, [place] Surgery: None Specialists: Counselor declined @ this time. ENT History of Present Illness The patient is a 20 year old individual presenting for a telehealth follow-up for management of ADHD. Attention-Deficit/Hyperactivity Disorder: - The patient is currently taking Qelbre e 200 mg daily for ADHD. - At the last visit, the patient was levy erating the medication without side effects but had not seen a significant improvement in symptoms, wishing to continue for a longer trial. - The patient continues to report minima l change in symptoms and acknowledges inconsistent medication adherence, frequently forgetting doses due to class schedules. Review of Systems - General: Denies any side effects from Qelbree. Physical Exam Limited physical exam was conducted Sitting in living room Awake alert pleasant Smiling and engaging Assessment and Plan 1. Attention-Deficit/Hyperactivity Disor claude (ADHD) - The patient is a 20-year-old individua l with ADHD who reports suboptimal symptom control with Qelbree 200 mg daily, partly due to inconsistent adherence. - The patient tolerates the medication w ithout side effects. - Given the lack of side effects and chanel t the current dose is well below the maximum of 800 mg daily, a dose increase is warranted. - Plan: - Increase Qelbree to 300 mg daily. - The patient will use the existing supp ly of 100 mg tablets (taking three per day for 20 days) until the new prescription is filled. - A new electronic prescription for Qelb ree 150 mg capsules (take two capsules daily) will be sent to the [facility] pharmacy. - The Qelbree 100 mg prescription will b e discontinued. - Discussed strategies to improve medica tion adherence, such as taking the medication as part of a structured morning routine before classes. - Counseled the patient on the possibili ty of insurance requiring a new prior authorization for the dose change. - Schedule a follow-up telehealth visit on August 15 at 12:30 PM to reassess efficacy and tolerance. - The patient was advised to send a mess age if a refill is needed before the next appointment. Patient was given time to ask questions. All questions were answered to their satisfaction. Telehealth Attestation This visit was conducted via a real-time, interactive audio and video telecommunication system. The patient has been explained that this is an interactive (audio/video) telehealth encounter and what that consists of. The patient understands and wishes to proceed. Netadmin platform was used. Total time spent caring for the patient today was 15 minutes. This includes time spent before the visit reviewing the chart, time spent during the visit, and time spent after the visit on documentation, reviewing laboratory results, diagnostic imaging, medications, performing a medically necessary evaluation, counseling on diagnoses, care coordination, ordering appropriate tests, ordering appropriate medications, review of tests performed by other providers, reporting test results with the patient, communication with other healthcare providers. COUNT INCLUDES THE [facility] Medical History (Updated 04/19/25 @ 15:53 by Linda Dhaliwal [facility]) Anxiety Surgical History (Updated 06/14/24 @ 11:26 by Genoveva Goel MA) No pertinent past surgical history Family History (Updated 06/14/24 @ 11:27 by Genoveva Goel MA) Sister Substance abuse Father Asthma Mother Hypertension Maternal Grandfather Hypertension Social History (Updated 06/14/24 @ 11:22 by Genoveva Goel MA) Household Members: None Housing: Apartment Housing Other:: dorm room Are you a primary care consultant to a significant other at home: No Do you presently have visiting nurse or other home services: No 75 years or older and lives alone: No Alcohol intake: never Patient Tobacco Use Status: Never used Tobacco e-Cigarette/Vaping Use: Never Used service: No Current occupational status: student Cognitive needs: Yes Hearing needs: No Vision needs: No Questionnaire Thrive Questionnaire Date Thrive assessed: 08/13/24 I am a: Patient What is your living situation today?: I have a steady place to live Within the past 12 months, did the food you bought not last and you didn't have the money to get more?: Never true Within the past 12 months, did you worry whether your food would run out before you got money to buy more?: Never true Do you have trouble paying for medicines?: No Do you have trouble getting transportation to medical appointments?: No Do you have trouble paying your heating and electricity bill?: No Do you have trouble taking care of your child, family member or friend?: No Do you have trouble with day-to-day activities such as bathing, preparing meals, shopping, managing finances, etc.?: No Are you currently unemployed and looking for a job?: No Are you interested in more education?: Yes Please select the resources that you would like help with: None Currently or been in a relationship where the following occur: No concerns reported THRIVE Score: 0 MAMTA-7 AMB Questionnaire MAMTA-7 Date MAMTA - 7 assessed: 09/10/24 Source: Developed by Drs. Silvano Oneal, Hilda Cardona, David Thrasher and colleagues, with an educational josh from [employer]. Physical exam (Primary Care) Tobacco/Smoking Status: Tobacco use Status Tobacco use date assessed 07/04/25 07/04/25 09:13 Patient Tobacco Use Status Never used Tobacco 07/04/25 09:13 e-Cigarette/Vaping Use Never Used 07/04/25 09:13 Thrive Assessment: Date of Thrive Assessment Date Thrive assessed 08/13/24 07/04/25 09:13 Currently or been in a relationship where the following occur: No concerns reported Telehealth Telehealth Telehealth Platform: [facility] Location of provider rendering services: practice address Location of patient: address on file Patient Identification confirmed using: Name, : Yes Telehealth method: video Patient verbally consented to treatment: Yes Patient verbally consented to billing insurance company: Yes Patient informed of any privacy concerns related to visit: Yes Minutes spent on Phone/Video with Pt.: 9 Coding Level of Care Code Tele Est Pt Level 2 (61942) Complex visit Add On G2211 Diagnoses ADHD (attention deficit hyperactivity disorder), inattentive type F90.0 Assessment & Plan Assessment & Plan (1) ADHD (attention deficit hyperactivity disorder), inattentive type: Code(s): F90.0 - Attention-deficit hyperactivity disorder, predominantly inattentive type Category: Medical Plan . Medications: New viloxazine ER (Qelbree) 300 mg (2 x 150 mg) PO DAILY 60 caps 0RF Discontinued viloxazine ER (Qelbree) Discontinued Reason: Doctor's Order 200 mg (2 x 100 mg) PO DAILY 60 caps 1RF
--- OUTSIDE RECORDS SUMMARY | 2025-07-04 10:14 | XMS_ITS | Encounter Summary ---
Author Organization [facility] Address [address] [facility] [address] [place] [address] Phone Care Team Providers Care Lens Generator Name Role Phone Linda Faira MOSS PICKER Primary Care Provider Encounter Details Date Type Department Care Team (Late st Contact Info) Description 12/27/2024 Procedure Pass [facility], Ct Scan - [address] [address] Social History Tobacco Use Types Packs/Day Years [...] 4:52 PM EDT Gem Caldera RN * [place] Suicide Severity Rating Scale (Screener/Recent Self-Report) Question [...] on filedocumented in this encounter Care Teams Lens Generator Relationship Specialty Start Date End Date Linda Faria NP [address] [place] [address] [email or web address] PCP - General 12/27/24 documented as of this encounter Additional Source Comments The information contained in this document represents components of the legal health record. It is not the complete legal health record.[facility]
--- OUTSIDE RECORDS SUMMARY | 2025-07-04 10:15 | XMS_ITS | Data Portability ---
Author Organization [place] [facility], Allergy Address [address] [place] [address] Care Team Providers Care Cement Side Laster Name Role Phone CLINTON REES Primary Care [...] Address Organization Details Recorded Time Nasal congestion 08087740 Active 025 DINO CLIFTON PA-C [address], [address], [place] - [facility] 17:48:33 Deviated nasal septum 379610057 Active 025 DINO CLIFTON PA-C [address] [place] [address], [place], [address], [facility] - [facility] 17:48:37 Chronic rhinitis 17109438 Active 025 DINO CLIFTON PA-C [address] [place] [address],[facility] [address], [place], [address], [facility] - [facility] 17:48:44 Problem Notes None recorded. Procedures Surgical History Date Name Laterality Status Provider Name and Address Organization Details Recorded Time 04/08/2025 NasalEndos copy_DP completed DINO CLIFTON PA-C [address] [place] [address], [place], [address], [facility] - [facility] 04/08/2025 17:45:35 Imaging Results None recorded. Procedure [...] 04/08/2025 157.48 cm 24.7 kg/m2 75 % [address]005.97 g Vanessa Payan [place] - [facility] 04/08/2025 13:49:14 Social History None recorded. Functional Status Question Answer Note LastModified by Organization D etails LastModified Time What is your level of alcohol consumption? None [email or web address] Information not available 04/08/2025 Mental Status None recorded. Family History Nothing Reported. Medical History Condition Response Allergies/Hayfever N Heart Problems N Anxiety N Tonsil Infections N Emphysema N Migraines N Thyroid Problems N COPD N Depression N Developmental Delay N Glaucoma N Nasal or Sinus Problems N Anemia N Immune System Disorder N Anesthesia Complications N Heart Attack (DE) N Other Skin Condition N Diabetes N [...] ICD10 Code Diagnosis IMO Codes Diagnosis Note [id number] DINO CLIFTON PA-C [facility] [address] [address] 04/08/2025 13:40:26 04/08/2025 14:14:06 Nasal congestion 59555381 R09.81 88046 Deviated nasal septum 12 9296656 J34.2 522564 Chronic rhinitis 4167666 6 J31.0 2545 Health Concerns Section Related Observation LastModified by Organization Detai ls LastModified Time None Recorded Concern Status LastModified by Organization Details LastModified Time None Recorded Advance Directives Directive None Recorded Payers Insurance Date Sequence Insurance Name Policy Number Policy Gama Covered Member ID Gama Member ID Guarantor Name 04/12/2025 1 [facility] [employer] [facility] (O) [id number] Flavia Cook [id number] 1 Flavia Cook Notes Date Note Type [...] with minimal improvement. DINO CLIFTON PA-C [address] [address], [place], [address], [facility] - [facility] 04/08/2025 17:50:53 OBGyn Episode No OBEpisode recorded.
--- OUTSIDE RECORDS SUMMARY | 2025-07-04 10:15 | XMS_ITS | Continuity of Care Document ---
Author Organization [place] - [facility], [facility] Address [address] [place] [address] Care Team Providers Care Preassembler Printed Circuit Board Name Role Phone CLINTON REES Primary Care [...] obtain copy of PSG results for review. [email or web address] Not available 04/08/2025 17:50:25 Plan of Treatment [...] Address Organization Details Recorded Time Nasal congestion 99663921 Active 025 DION CLIFTON PA-C [address] [place] [address], [address], [place] - [facility] 17:48:33 Deviated nasal septum 617144688 Active 025 DINO CLIFTON PA-C [address] [address], [place], [address], [place] [facility] 17:48:37 Chronic rhinitis 63499790 Active 025 DINO CLIFTON PA-C 100 [facility] [address], [place], [address], [facility] - [facility] 17:48:44 Problem Notes None recorded. Procedures Surgical History Date Name Laterality Status Provider Name and Address Organization Details Recorded Time 04/08/2025 NasalEndos copy_DP completed DINO CLIFTON PA-C [address], [address], [facility] 04/08/2025 17:45:35 Imaging Results None recorded. Procedure [...] 04/08/2025 157.48 cm 24.7 kg/m2 75 % 76912.97 g Vanessa Payan [place] - [facility] 04/08/2025 13:49:14 Social History None recorded. Functional [...] Disorder N Anesthesia Complications N Heart Attack (NM) N Other Skin Condition N Diabetes N [...] ICD10 Code Diagnosis IMO Codes Diagnosis Note [id number] DINO CLIFTON PA-C [facility] [address] [address] 04/08/2025 13:40:26 04/08/2025 14:14:06 Nasal congestion 50636789 R09.81 23814 Deviated nasal septum 12 7752048 J34.2 258250 Chronic rhinitis 8845524 6 J31.0 2545 Health Concerns Section Related Observation LastModified by Organization Detai ls LastModified Time None Recorded Concern Status LastModified by Organization Details LastModified Time None Recorded Payers Encounter Date Sequence Insurance Name Policy Number Policy Gama Covered Member ID Gama Member ID Guarantor Name 04/08/2025 1 [facility] [employer] [facility] (O) [id number] Flavia Cook [id number] 1 Flavia Cook Notes Date Note Type [...] with minimal improvement. DINO CLIFTON PA-C [address] [address], [place], [address], [place] - [facility] 04/08/2025 17:50:53 OBGyn Episode No OBEpisode recorded.
--- OUTSIDE RECORDS SUMMARY | 2025-07-04 10:15 | XMS_ITS | Clinical Summary ---
Author Organization [facility] Address [address] [place] [phone] Phone Care Team Providers Care Scabbler Name Role Phone Linda Faria NP Primary [...] (1 of 1 - Standard series) 2005 HEPATITIS A VACCINES (2 of 2 - 2-dose series) 12/02/2015 06/02/2015 DEPRESSION SCREENING 2016 COMBINED DTaP,Tdap,Td (2 - T d or Tdap) 07/23/2016 06/25/2016 SMOKING Hx and SMOKELESS TOBACCO SCREENING 2017 CHLAMYDIA SCREENING 2020 ADOLESCENT UNIVERSAL LIPID SCREENING 2021 HEPATITIS C SCREENING 2022 HIV ONE-TIME SCREENING (18-6 5 YEARS) 2022 INFLUENZA VACCINE (#1) 2025 COVID-19 VACCINE (1 - 2024-2 6 season) 2025 PAP SMEAR 2025 Adult Td,Tdap Booster 06/25/2026 06/25/2016 HPV VACCINES Completed 07/09/2017, 06/25/2016 MENINGOCOCCAL VACCINES (ACWY) Completed , 06/25/2016 MENINGOCOCCAL VACCINES (B) Completed 01/15, 08/13/2022 HIB VACCINES Aged Out No longer eligi ble based on patient's age to complete this topic PNEUMOCOCCAL VACCINES (0-49 years) Aged Out No longer eligible b ased on patient's age to complete this topic Medical Devices Not on file Insurance [facility] [employer] Renewables [facility] [employer] [place] [address] [place] [address] [place] [address] [place] [address] [employer] DIRECT Care Teams Scabbler Relationship Specialty Start Date End Date Linda Faria NP [address] [place] [phone] [email or web address] PCP - General 12/27/24 Additional Source Comments The information contained in this document represents components of the legal health record. It is not the complete legal health record.[facility]
== END 2025-07-04 09:56 | disposition home or self-care (01) ==
LOC: HO.HMCFM 09:13
PROVIDERS: PCP Nurse Practitioner Family; Visit Provider Nurse Practitioner Family
DX: F90.0 Attention-deficit hyperactivity disorder, predominantly inattentive type (principal)